=== PATIENT | male | born 1955 | race Caucasian/White ===

== ENCOUNTER 2018-11-03 16:18 | Inpatient (IN) | payer OTHER ==
[~2018-11-03] VITALS: Ht 188 cm; Wt 130.1 kg
[2018-11-03] MEDS ORDERED: ELIQ5TAB PO (16:59)
[2018-11-03] MEDS ORDERED: DIGO0.12 PO (16:59)
[2018-11-03] MEDS ORDERED: TORS20TA2 PO (16:59)
[2018-11-03] MEDS ORDERED: SPIR-10 PO (16:59)
[2018-11-03] MEDS ORDERED: SPIR1CAP INH (16:59)
[2018-11-03] MEDS ORDERED: metoprolol er (16:59)
[2018-11-03] MEDS ORDERED: METOPROLOL TART 25 MG TABLET PO ONE (17:15)
--- NOTE | 2018-11-03 17:56 | REP ---
Clinical: Acute chest pain . Comparison: None . Findings: The mediastinum and cardiac silhouette are stable and within normal limits for portable technique. The lung styles are clear without acute consolidation, effusion, or pneumothorax. Skeletal structures are intact. Impression: No acute cardiopulmonary process appreciated. Electronically Signed by Marcell Cortés MD 11/03/2018 05:48 P
[2018-11-03 18:50] LABS: BASO # 0.1 10^3/uL (0.0-0.2); BASO % 0.3 % (0.0-1.0); HEMATOCRIT 51.4 % (42.0-52.0); HEMOGLOBIN 18.1 g/dl (13.5-17.5); LYMPH % 11.5 % (24.0-44.0); MEAN CORPUSCULAR HEMOGLOBIN 34.3 pg (27.0-33.0); MEAN CORPUSCULAR HGB CONC 35.2 g/dl (32.0-36.5); MEAN CORPUSCULAR VOLUME 97.5 fl (80.0-96.0); MONO # 1.3 10^3/uL (0.0-0.8); MONO % 7.7 % (0.0-5.0); NEUTROPHILS # 13.8 10^3/uL (1.8-7.7); PLATELET COUNT, AUTOMATED 184 10^3/uL (150-450); RED BLOOD COUNT 5.27 10^6/uL (4.30-6.10); WHITE BLOOD COUNT 17.3 10^3/uL (4.0-10.0)
[2018-11-03 19:34] LABS: BLOOD UREA NITROGEN 26 MG/DL (7-18); CALCIUM LEVEL 8.9 MG/DL (8.8-10.2); CARBON DIOXIDE LEVEL 30 MEQ/L (21-32); CHLORIDE LEVEL 97 MEQ/L (98-107); CK-MB VALUE MASS 2.4 NG/ML (<3.6); CPK CREATINE PHOSPHOKINASE 258 U/L (39-308); CREATININE FOR GFR 1.17 MG/DL (0.70-1.30); DIGOXIN LEVEL 0.8 NG/ML (0.5-2.0); GLOMERULAR FILTRATION RATE > 60.0 (>49); GLUCOSE, FASTING 121 MG/DL (70-100); MB/CK RELATIVE INDEX 0.93 (< OR =4); NT-PRO BNP 3908 PG/ML (<125); POTASSIUM SERUM 4.5 MEQ/L (3.5-5.1); SODIUM LEVEL 135 MEQ/L (136-145); TROPONIN I < 0.02 NG/ML (< 0.10)
[2018-11-03] MEDS: METOPROLOL 5 MG/5 ML VIAL IV SCH ×3 (19:35→19:55)
[2018-11-03] MEDS ORDERED: ISOVUE-370 76% 100ML VIAL (Q9967) As Ordered ONE (20:26)
[2018-11-03] MEDS ORDERED: IPRATROPIUM 0.5MG/ALBUTEROL 2.5MG INH SOL UD 3ML (DUONEB)(J7620) NEB ONE (20:30)
--- NOTE | 2018-11-03 22:12 | REPVR ---
EXAM: CT Angiography Chest With Contrast EXAM DATE/TIME: 11/03/2018 8:39 PM CLINICAL HISTORY: 63 years old, male; Cough and fever and shortness of breath; Additional info: Cough, SOB, fever TECHNIQUE: Imaging protocol: Axial computed tomographic angiography images of the chest with intravenous contrast using CT angiography protocol. Coronal and sagittal reformatted images were created and reviewed. 3D rendering: MIP reconstructed images were created and reviewed. Radiation optimization: All CT scans at this facility use at least one of these dose optimization techniques: automated exposure control; mA and/or kV adjustment per patient size (includes targeted exams where dose is matched to clinical indication); or iterative reconstruction. Contrast material: ISOVUE 370; Contrast volume: 100 ml; Contrast route: IV; COMPARISON: CR PORTABLE CHEST X-RAY 11/03/2018 4:57 PM FINDINGS: Pulmonary arteries: There is opacification of the pulmonary arteries with no evidence of pulmonary embolus. Aorta: There is opacification of the aorta which appears intact. Lungs: Mild streaky atelectasis and infiltrate at the lingula. Pleural space: There is no evidence of pneumothorax. There is no evidence of pleural effusion. Heart: There is moderate cardiomegaly. No evidence of pericardial effusion. Gallbladder and bile ducts: There is a 2 CM round calcified gallstone stone within the neck of the gallbladder. Lymph nodes: Small mediastinal lymph nodes Bones/joints: There is moderate scoliosis of the thoracic spine with prominent osteophyte formation. Impression: IMPRESSION: No evidence of pulmonary embolus. Mild streaky atelectasis infiltrate at the lingula. Moderate cardiomegaly. 2 cm gallstone. Electronically signed by: Tereso Flores On 11/03/2018 22:12:10 PM
[2018-11-03] MEDS ORDERED: ACETAMINOPHEN 325 MG TAB As Ordered ONE (22:55)
[2018-11-03] MEDS ORDERED: ACETAMINOPHEN TAB 650MG DOSE (2X325MG) PO ONE (23:00)
[2018-11-03] MEDS ORDERED: METOPROLOL 5 MG/5 ML VIAL As Ordered ONE (23:45)
[2018-11-03] MEDS ORDERED: PIPERACILLIN/TAZOBACTAM SOD 3.375 GM in D5W MINI-BAG PLUS 50 ML IV ONE (23:45)
[2018-11-04] MEDS ORDERED: SPIR1CAP INH (00:27)
[2018-11-04] MEDS ORDERED: ELIQ5TAB PO (00:27)
[2018-11-04] MEDS ORDERED: METO1TAB33 PO (00:27)
[2018-11-04] MEDS ORDERED: TORS20TA2 PO (00:27)
[2018-11-04] MEDS ORDERED: DIGO0.12 PO (00:27)
[2018-11-04] MEDS ORDERED: SPIR-10 PO (00:27)
[2018-11-04] MEDS ORDERED: ALBU83IN INH (00:28)
[2018-11-04] MEDS ORDERED: PROAAER10 INH (00:28)
[2018-11-04] MEDS: APIXABAN 5 MG TAB (ELIQUIS) PO SCH ×3 (00:34→21:09)
--- NOTE | 2018-11-04 00:42 | HPEPDOC ---
General Date of Admission Nov 04, 2018 at 00:08 Date of Service: Nov 04, 2018 Attending Physician: SB KELLY DO Chief Complaint The patient is a 63-year-old male admitted with a reason for visit of Atrial Fibrillation W/Rvr,Pneumonia,Sepsis. Source: Patient Exam Limitations: Clinical conditions Timing/Duration: Day(s) Severity: Severe Associated Symptoms: Cough, Diaphoresis, Fever, Chills, Malaise, Shortness of breath, Weakness, Dizziness History of Present Illness Patient is a 63-year-old male, presenting to the emergency room on account of couple of days onset of weakness, dizziness, cough, shortness of breath. Patient has a past medical history significant for atrial fibrillation on anticoagulation therapy with Eliquis, chronic COPD on Spiriva, morbid obesity, untreated sleep apnea. He states he's had a cough for 2 days with shortness of breath and weakness. He was not aware he had a fever until he got to the emergency room. CT chest with contrast completed due to shortness of breath showed mild streaky atelectasis with infiltrate at the lingula. White blood count was markedly elevated at 17.3, hemoglobin was 18.1, lactic acid was 2.2, proBNP was 07/11/2007. Digoxin level was 0.8. Urinalysis was abnormal for 3+ blood with RBC of 11. Patient was given nebulizer treatment, after which he went into rapid ventricular rhythm. Heart rate was in the 140s. At time of evaluation, shortness of breath was still persisting, patient was also diaphoretic and in some great discomfort. He denied any pain. However. Home Medications Scheduled Apixaban (Eliquis) 5 Mg Tablet, 5 MG PO BID, (Reported) Digoxin (Digoxin) 125 Mcg Tablet, 125 MCG PO DAILY, (Reported) Metoprolol Succinate (Metoprolol Succinate) 100 Mg Tab.er.24h, 150 MG PO BID, (Reported) Spironolactone (Spironolactone) 25 Mg Tablet, 12.5 MG PO DAILY, (Reported) Tiotropium [place] (Spiriva) 18 Mcg Cap.w.dev, 1 INHALATION INH DAILY, (Reported) Torsemide (Torsemide) 20 Mg Tablet, 40 MG PO DAILY, (Reported) Scheduled PRN Albuterol Sulf (Albuterol Sulfate) 2.5 Mg/3 Ml Vial.neb, 2.5 MG INH Q4H PRN for SHORTNESS OF BREATH, (Reported) Albuterol Sulfate (Proair Hfa) 8.5 Gm Hfa.aer.ad, 2 PUFF INH Q4H PRN for SHORTNESS OF BREATH, (Reported) Allergies Coded Allergies: lisinopril (Verified Allergy, Unknown, 11/03/18) Past Medical History Medical History Morbid obesity. Obstructive sleep apnea. Atrial fibrillation. COPD Surgical History Inguinal hernia repair Family History Father: Lung cancer Mother: Alzheimer's Social History * Smoker: Denies Alcohol: occationally Drugs: denies A-FIB/CHADSVASC A-FIB History Current/History of A-Fib/PAF?: Yes Current PO Anticoag Therapy: Yes Review of Systems Other systems A 10 point pertinent review of systems was completed, negative except as stated in the history of presenting illness. Physical Examination Other physical findings GENERAL: Obese male in some distress and discomfort with diaphoresis and some SOB SKIN : Warm, eccymosis and discoloration HEENT: Atraumatic, normocephalic, PERRL, moist mucous membrane CARDIOVASCULAR: irregular rate and rhythm, S1S2, no JVD, BLE edema, distal pulses not palpable RESP: inspiratory crackles to right posterior lung fileds, mild accessory muscle use noted ABDOMEN: BS+ non distended non tender MS: no joint deformities NEURO: Alert and oriented x 3, CN2-12 grossly intact PSYCH: no anxiety or agitation, appropriate mood and affect. Vital Signs Vital Signs Date Time Temp Pulse Resp B/P (MAP) Pulse Ox O2 Delivery O2 Flow Rate FiO2 11/04/18 00:15 99.6 11/04/18 00:15 101 28 106/75 (85) 94 Nasal Cannula 2.0 Laboratory Data Labs 24H Laboratory Tests 2 11/03/18 18:38: Immature Granulocyte % (Auto) 0.5, White Blood Count 17.3H, Red Blood Count 5.27, Hemoglobin 18.1H, Hematocrit 51.4, Mean Corpuscular Volume 97.5H, Mean Corpuscular Hemoglobin 34.3H, Mean Corpuscular Hemoglobin Concent 35.2, Red Cell Distribution Width 12.8, Platelet Count 184, Neutrophils (%) (Auto) 80.0H, Lymphocytes (%) (Auto) 11.5L, Monocytes (%) (Auto) 7.7H, Eosinophils (%) (Auto) 0.0, Basophils (%) (Auto) 0.3, Neutrophils # (Auto) 13.8H, Lymphocytes # (Auto) 2.0, Monocytes # (Auto) 1.3H, Eosinophils # (Auto) 0.0, Basophils # (Auto) 0.1, Nucleated Red Blood Cells % (auto) 0.0, Urine Color YELLOW, Urine Appearance CLEAR, Urine pH 6.0, Urine Specific [place] 1.046, Urine Protein NEGATIVE, Urine Glucose (UA) NEGATIVE, Urine Ketones NEGATIVE, Urine Blood 3+H, Urine Nitrite NEGATIVE, Urine Bilirubin NEGATIVE, Urine Urobilinogen 0.2, Urine Leukocyte Esterase NEGATIVE, Urine WBC (Auto) 0, Urine RBC (Auto) 11H, Urine Hyaline Casts (Auto) 0, Urine Bacteria (Auto) NEGATIVE, Urine Squamous Epithelial Cells 1, Urine Sperm (Auto) , Anion Gap 8, Glomerular Filtration Rate > 60.0, Blood Urea Nitrogen 26H, Creatinine 1.17, Sodium Level 135L, Potassium Level 4.5, Chloride Level 97L, Carbon Dioxide Level 30, Calcium Level 8.9, Total Creatine Kinase 258 , Creatine Kinase MB 2.4, Creatine Kinase MB Relative Index 0.93, Troponin I < 0.02, XS-Ttj-M-Type Natriuretic Peptide 3908H, Digoxin Level 0.8 11/03/18 22:04: Lactic Acid Level 2.2*H CBC/BMP Laboratory Tests 11/03/18 18:38 Red Blood Count 5.27, Mean Corpuscular Volume 97.5 H, Mean Corpuscular Hemoglobin 34.3 H, Mean Corpuscular Hemoglobin Concent 35.2, Red Cell Distribution Width 12.8, Neutrophils (%) (Auto) 80.0 H, Lymphocytes (%) (Auto) 11.5 L, Monocytes (%) (Auto) 7.7 H, Eosinophils (%) (Auto) 0.0, Basophils (%) (Auto) 0.3, Neutrophils # (Auto) 13.8 H, Lymphocytes # (Auto) 2.0, Monocytes # (Auto) 1.3 H, Eosinophils # (Auto) 0.0, Basophils # (Auto) 0.1, Calcium Level 8.9, Total Creatine Kinase 258 Microbiology Microbiology 11/03/18 Blood Culture, Received Pending 11/03/18 Blood Culture, Received Pending Assessment/Plan Sepsis with Pneumonia -Presenting with fever, shortness of breath, cough, elevated lactic acid -Continous IVF till HR is normalized -Antibiotic therapy with IV Levaquin -Scheduled bronchodilator therapy -Respiratory support and monitoring to keep saturation greater than 94% --Follow blood culture and adjust management as indicated Atrial fibrillation with RVR -Metoprolol tartrate for rate control -Continue anticoagulation with Eliquis -Close telemetry monitoring -2-D echocardiogram to evaluate ejection fraction and rule out regional wall motion abnormalities Acute COPD exacerbation -Continue nebulizer treatment -Treatment of underlying acute infectious process -Initiate steroid therapy after at least 48 hours of antibiotic therapy Morbid obesity -Complicating care Obstructive sleep apnea -currently untreated and likely worsening current acute COPD -Patient will need assessment for CPAP use after discharge DVT prophylaxis -Patient is fully anticoagulated Plan / VTE VTE Prophylaxis Ordered?: Yes BANG RAMOSP Nov 04, 2018 00:42
[2018-11-04] MEDS ORDERED: NS 1,000 ML IV SCH ×2 (00:45→14:00)
[2018-11-04] MEDS: LevoFLOXacin IV 500 MG in APPROPRIATE DILUENT 1 EA IV SCH (01:37)
[2018-11-04 03:33] LABS: HEMATOCRIT 48.6 % (42.0-52.0); HEMOGLOBIN 16.7 g/dl (13.5-17.5); MEAN CORPUSCULAR HEMOGLOBIN 33.7 pg (27.0-33.0); MEAN CORPUSCULAR HGB CONC 34.4 g/dl (32.0-36.5); MEAN CORPUSCULAR VOLUME 98.2 fl (80.0-96.0); PLATELET COUNT, AUTOMATED 145 10^3/uL (150-450); RED BLOOD COUNT 4.95 10^6/uL (4.30-6.10); WHITE BLOOD COUNT 18.1 10^3/uL (4.0-10.0)
[2018-11-04 04:00] LABS: ALT/SGPT 155 U/L (12-78); BILIRUBIN,TOTAL 1.2 MG/DL (0.2-1.0); BLOOD UREA NITROGEN 27 MG/DL (7-18); CALCIUM LEVEL 8.4 MG/DL (8.8-10.2); CARBON DIOXIDE LEVEL 32 MEQ/L (21-32); CHLORIDE LEVEL 94 MEQ/L (98-107); CREATININE FOR GFR 1.16 MG/DL (0.70-1.30); GLOMERULAR FILTRATION RATE > 60.0 (>49); GLUCOSE, FASTING 121 MG/DL (70-100); POTASSIUM SERUM 3.8 MEQ/L (3.5-5.1); SODIUM LEVEL 134 MEQ/L (136-145)
[2018-11-04] MEDS ORDERED: DIGOXIN 0.125 MG TAB PO ONE (05:30)
[2018-11-04] MEDS ORDERED: METOPROLOL 5 MG/5 ML VIAL IV ONE (05:30)
[2018-11-04] MEDS ORDERED: METOPROLOL TART 25 MG TABLET PO SCH ×2 (06:00→18:00)
[2018-11-04] MEDS: IPRATROPIUM 0.5MG/ALBUTEROL 2.5MG INH SOL UD 3ML (DUONEB)(J7620) NEB PRN (06:03)
[2018-11-04 08:00] VITALS: BP 129/74; O2SAT 94
[2018-11-04] MEDS: IPRATROPIUM 0.5MG/ALBUTEROL 2.5MG INH SOL UD 3ML (DUONEB)(J7620) NEB SCH ×2 (08:20→11:16)
[2018-11-04] MEDS ORDERED: SPIRONOLACTONE 12.5MG PER 1/2 TABLET PO SCH (09:00)
[2018-11-04] MEDS ORDERED: METOPROLOL SUCC (TopROL XL) 50MG **XL** TAB PO SCH (09:00)
[2018-11-04] MEDS ORDERED: TORSEMIDE 20 MG TAB PO SCH (09:00)
--- NOTE | 2018-11-04 10:33 | ECGEPIP ---
[place] - ED Test Date: 2018-11-03 Pat Name: LEYDA LEYVA Department: Room: - Gender: Male Complaint Operator: MARYCARMEN : 1955 Requested By: JO Harris Order Number: [id number] Reading MD: Ricardo Vidal Measurements Intervals [place] Rate: 127 P: NV: -1 QRS: 163 QRSD: 177 T: 19 QT: 360 QTc: 525 Interpretive Statements ATRIAL FIBRILLATION WITH RAPID VENTRICULAR RESPONSE INDETERMINATE AXIS RIGHT BUNDLE BRANCH BLOCK LEFT POSTERIOR FASCICULAR BLOCK MARKED ST DEPRESSION, CONSIDER SUBENDOCARDIAL INJURY NO PRIORS FOR COMPARISON Electronically Signed on 11-04-2018 10:33:05 EDT by Ricardo Vidal
[2018-11-04 12:00] VITALS: BP 120/78; O2SAT 95
[2018-11-04] MEDS: ACETAMINOPHEN TAB 650MG DOSE (2X325MG) PO PRN (12:48)
[2018-11-04 13:36] VITALS: BP 90/60
--- NOTE | 2018-11-04 13:55 | ECHO ---
DATE OF STUDY: 11/04/2018 REFERRING PHYSICIAN: ALEXIS Maher INDICATION: Atrial fibrillation. Height 185 cm. Weight 130 kg. DIMENSIONS: IVS 1.3 LV 4.6 LVPW 1.3 LA 4.1 Aorta 4.2 RV 4.8 from parasternal long-axis view IVC 2.4 FINDINGS: The study is of rather limited technical quality with difficult visualization corresponding to the patient's body habitus. The patient is in atrial fibrillation with ventricular rate approximately 110 beats per minute. Left ventricle is normal size. Mild left ventricular hypertrophy is noted. Overall, there is likely preserved LV systolic function, even though the visualization was limited, and I certainly cannot rule out subtle wall motion abnormalities. Right ventricle appears dilated and hypokinetic. There is severe biatrial enlargement. Aortic valve was poorly seen. It is mildly sclerotic. There was limited visualization of mitral and tricuspid valves that appeared grossly normal. The same applies for pulmonic valve. No pericardial effusion is noted. Inferior vena cava is dilated, and there is minimal appreciable collapse with respiration indicative of likely high central venous pressure. Aortic root is mildly dilated at 4.2 cm. Aortic arch and abdominal aorta were not visualized. Doppler interrogation reveals no aortic stenosis or insufficiency. The same applies for mitral valve. There is trace tricuspid insufficiency but quality of TR jet was not sufficient to adequately estimate pulmonary artery pressure. Evaluation of diastolic function is inconclusive due to underlying atrial fibrillation. CONCLUSIONS: 1. The study is of limited technical quality. 2. Normal LV size with mild LVH and probably normal LV systolic function. 3. No significant valvular disease. 4. Dilated right ventricle. 5. High central venous pressure. 6. Unable to reliably estimate pulmonary artery pressure. 7. Severe biatrial enlargement. COMMENT: Subacute bacterial endocarditis (SBE) prophylaxis is not recommended. [facility]
[2018-11-04] MEDS ORDERED: FUROSEMIDE 40 MG/4 ML VIAL (J1940) IV ONE (14:45)
[2018-11-04] MEDS: TIOTROPIUM INHALER/CAPSULE (SPIRIVA) INH SCH (15:15)
--- NOTE | 2018-11-04 15:22 | CR ---
DATE OF CONSULTATION: 11/04/2018 REFERRING PHYSICIAN: Dr. Monteiro INDICATION: Atrial fibrillation with rapid ventricular response. HISTORY OF PRESENT ILLNESS: Mr. Umanzor is previously unknown to me. He is a 63-year-old man who resides in [facility] and is visiting here his daughter. He reports several day history of weakness and cough prior to coming to emergency room yesterday. Eventually, he was so weak and so dizzy and lightheaded that he was unable to ambulate and asked his daughter to bring him to emergency room. He was found to be in atrial fibrillation with rapid ventricular response. He was also febrile and had elevated white cell count. Also, his lactic acid level was mildly elevated. He was treated essentially with antibiotics, intravenous (IV) hydration, and continuation of his chronic rate-controlling medications, but because he remained tachycardia, I was asked by Dr. Monteiro to see him in consultation. The patient tells me that he was diagnosed with atrial fibrillation in summer 2017. Apparently, his systolic function was severely reduced, and he was told that his heart works only 20%. He had a heart catheterization that did not reveal any obstructive coronary artery disease. He also underwent cardioversion that apparently was unsuccessful, and he has been maintained on combination of Toprol XL 150 twice a day and digoxin since. At his baseline, he is unable to ambulate very far because he gets rapidly short of breath. He believes that is a combination of chronic obstructive pulmonary disease (COPD) and obesity. He was told that he probably has obstructive sleep apnea, but he has been resistant to have this evaluated further. Nevertheless, he never had similar symptoms like today, especially the weakness and some form of disorientation. He did not know that he had any fever, but he had had some sweats and chills for a few days prior to coming to emergency room. PAST MEDICAL HISTORY: 1. Probably chronic atrial fibrillation since 2018. 2. Morbid obesity. 3. COPD. 4. Suspected sleep apnea. HOME MEDICATIONS: - Eliquis 5 twice a day - digoxin 0.125 a day - metoprolol succinate 150 twice a day - spironolactone 12.5 a day - Spiriva one inhalation a day - torsemide 40 mg daily He reports allergies to LISINOPRIL. SURGICAL HISTORY: Inguinal hernia repair. FAMILY HISTORY: His father from lung cancer and mother from Alzheimer disease. SOCIAL HISTORY: The patient is . He lives with his sister who is a registered nurse (RN). He used to smoke at least 30 years at one pack a day and quit 2 months ago. No significant alcohol use. 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 REVIEW OF SYSTEMS: He denies any fever. He did have some chills and sweats. He denies significant changes in his weight lately but did not follow his weight with any degree of regularity. He denies any chest pain, palpitations. He had dizziness but no anel syncope. He does have [place] Heart [employer] class III dyspnea at his baseline. No abdominal pain. No nausea, vomiting, or diarrhea. He did not notice significant peripheral edema. He does report pain in his right ankle in the last several days. PHYSICAL EXAMINATION: Mr. Umanzor is a middle-aged, morbidly obese man. He is an obese man who does not appear to be in any distress. Last set of vital signs revealed blood pressure 120/78, heart rate about 105, and he fluctuates from high 90s to 120s. Saturation is 95% on 3 liters of oxygen by nasal cannula. He is alert and oriented and appropriate. His jugular venous pressure (JVP) is very elevated. I would estimate at least 7 or 8 cm above clavicle. Lungs are reasonably clear with fair air movement. I do not appreciate any wheezing, crackles, or rhonchi. Heart examination: Reveals very muffled heart sound corresponding to his obesity. I cannot appreciate precordial impulse. There is irregular tachycardia without obvious murmur or gallop. Abdomen is protuberant but soft and nontender. I do not appreciate evidence for ascites. There is trace peripheral edema bilaterally. There are prominent excoriation on his right rhodes with surrounding erythema. Neurologically, he is intact. I did not formally test his deep tendon reflexes or muscle strengths, but his speech is normal, and he moves freely all four extremities. He tells me that he still has trouble with ambulation. LABORATORY-[facility]: Complete blood count (CBC) reveals WBC count 18,000, hemoglobin 16.7, hematocrit 48.6, and platelet count 145,000. Basic metabolic panel as of this morning: Sodium 134, potassium 3.8, BUN 27, creatinine 1.2, glucose 121. His lactic acid level continues to be elevated. It was yesterday 2.2 and remains approximately same since. Bilirubin is 1.2, AST 94, ALT 155, alkaline phosphatase 63, albumin 3.0. His N-terminal proBNP was 3900. Cardiac enzymes negative times one. Digoxin level was 0.8. Urinalysis revealed 3+ blood but negative for ketones, protein, and glucose. 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 Chest x-ray reveals cardiomegaly and congestive heart failure without distinct effusions. CT angiography of the chest revealed enlargement of all four cardiac chambers with possible infiltrate in the lingula. There are dilated pulmonary arteries. An echocardiogram performed earlier today and interpreted by me reveals grossly preserved left ventricular systolic function with dilated hypokinetic right ventricle severe biatrial enlargement and no hemodynamically significant valvular disease. There is a high central venous pressure, but I was unable to reliably estimate pulmonary artery pressure even though it is very likely at least mildly elevated. There is not a septal wall motion abnormality indicative of severe pulmonary hypertension. ASSESSMENT AND PLAN: Mr. Umanzor is a 63-hour-old man who very likely has chronic atrial fibrillation, probably precipitated by obesity and obstructive sleep apnea (BECKIE) that has not been treated. He presents with dizziness and weakness and is found to be febrile and has very elevated white cell count. I am not convinced that he has pneumonia, at least not clinically, even though it certainly is in differential diagnosis. The management of infection remains with his primary team. As far as the atrial fibrillation is concerned, he is mildly tachycardic with the average heart rate probably about 105. I am going to leave his medications unchanged. I think that it is reflective of underlying infection and sepsis, and I do expect that it will come down as the infection gets under better control. As far as his dyspnea is concerned, he undoubtedly is volume overloaded. He has not been receiving his diuretics, and he actually initially got some hydration to start with. I think that we need to reverse the course on this, as it very likely contributes to his degree of dyspnea. I am going to give him a single dose of furosemide today and then will reevaluate him again tomorrow. I will follow the patient with you. I do expect that he will stay in the hospital for several days. [place]
[2018-11-04 15:46] VITALS: BP 104/64
[2018-11-04] MEDS ORDERED: SLF 3 ML SYR IV PRN (16:30)
[2018-11-04] MEDS: LEVALBUTEROL 1.25 MG/0.5 ML CONCENTRATE NEB INH SCH (19:46)
[2018-11-04 20:00] VITALS: BP 127/74
[2018-11-04] MEDS: METOPROLOL SUCC (TopROL XL) 50MG **XL** TAB PO SCH (21:10)
[2018-11-04] MEDS: SLF 3 ML SYR IV SCH (21:10)
[2018-11-04 23:59] VITALS: BP 110/61
[2018-11-05] VITALS (21 sets, daily range): BP systolic 103–127; BP diastolic 53–75; O2SAT 91–97
[2018-11-05] MEDS: IPRATROPIUM 0.5MG/ALBUTEROL 2.5MG INH SOL UD 3ML (DUONEB)(J7620) NEB PRN (01:35)
[2018-11-05] MEDS: LevoFLOXacin IV 500 MG in APPROPRIATE DILUENT 1 EA IV SCH (02:12)
[2018-11-05 05:03] LABS: BASO # 0.1 10^3/uL (0.0-0.2); BASO % 0.3 % (0.0-1.0); HEMATOCRIT 43.7 % (42.0-52.0); HEMOGLOBIN 15.3 g/dl (13.5-17.5); LYMPH # 2.5 10^3/uL (1.5-4.5); LYMPH % 13.4 % (24.0-44.0); MEAN CORPUSCULAR HEMOGLOBIN 33.9 pg (27.0-33.0); MEAN CORPUSCULAR VOLUME 96.9 fl (80.0-96.0); MONO # 1.7 10^3/uL (0.0-0.8); MONO % 9.5 % (0.0-5.0); NEUTROPHILS % 76.1 % (36.0-66.0); PLATELET COUNT, AUTOMATED 130 10^3/uL (150-450); RED BLOOD COUNT 4.51 10^6/uL (4.30-6.10); WHITE BLOOD COUNT 18.3 10^3/uL (4.0-10.0)
[2018-11-05] MEDS: SLF 3 ML SYR IV SCH ×3 (05:06→20:17)
[2018-11-05 05:34] LABS: ALBUMIN 2.7 GM/DL (3.2-5.2); ALT/SGPT 97 U/L (12-78); BILIRUBIN,TOTAL 0.7 MG/DL (0.2-1.0); BLOOD UREA NITROGEN 28 MG/DL (7-18); CALCIUM LEVEL 7.8 MG/DL (8.8-10.2); CARBON DIOXIDE LEVEL 29 MEQ/L (21-32); CHLORIDE LEVEL 96 MEQ/L (98-107); CREATININE FOR GFR 0.96 MG/DL (0.70-1.30); GLOMERULAR FILTRATION RATE > 60.0 (>49); GLUCOSE, FASTING 118 MG/DL (70-100); POTASSIUM SERUM 3.5 MEQ/L (3.5-5.1); SODIUM LEVEL 133 MEQ/L (136-145); TOTAL PROTEIN 7.1 GM/DL (6.4-8.2)
[2018-11-05] MEDS: LEVALBUTEROL 1.25 MG/0.5 ML CONCENTRATE NEB INH SCH ×3 (08:23→20:42)
[2018-11-05] MEDS: TIOTROPIUM INHALER/CAPSULE (SPIRIVA) INH SCH (08:23)
[2018-11-05] MEDS: APIXABAN 5 MG TAB (ELIQUIS) PO SCH ×2 (08:27→20:16)
[2018-11-05] MEDS: DIGOXIN 0.125 MG TAB PO SCH (08:28)
[2018-11-05] MEDS: METOPROLOL SUCC (TopROL XL) 50MG **XL** TAB PO SCH ×2 (08:29→20:16)
[2018-11-05] MEDS ORDERED: FUROSEMIDE 40 MG/4 ML VIAL (J1940) IV ONE (10:00)
[2018-11-05] MEDS ORDERED: POTASSIUM CHLORIDE 10 MEQ SR TABLET PO ONE (10:00)
--- NOTE | 2018-11-05 10:18 | IPN ---
DATE: 11/05/2018 Mr. Umanzor tells me that he is feeling better. He is less dizzy and feels like having more energy. He did not notice much change in his dyspnea. His vital signs overnight remained fairly stable. Systolic blood pressure varied between low 100s to 120s. He has been afebrile an average heart rate has dropped to about the high 80s and low 90s. Saturation is 95% on 2 liters of oxygen. His fluid balance yesterday was poorly documented. He his weight though is down approximately 1.5 kg since yesterday. He is alert and oriented appropriate. His jugular venous pressure is still high but not as high as it was yesterday, estimate about 4 to 5 cm above clavicle. Lungs are clear, better air movement today than yesterday. Heart exam continues to be unchanged. He has fairly muffled heart sounds corresponding to his body habitus, but I do not appreciate distinct murmur. Abdomen is soft, nondistended but protuberant, cannot estimate the size of liver or spleen. He has mild peripheral edema bilaterally. LABORATORY: Basic metabolic panel reveals sodium 133, potassium 3.5, BUN 28, creatinine 1 and glucose 118, lactic acid is down to 1.4. Liver function tests are improved. Troponin remains negative and albumin is 2.7 ASSESSMENT/PLAN: Mr. Umanzor is a 63-year-old man who has probably chronic atrial fibrillation with and presented with dizziness and weakness. He was febrile and continues to have white cell count elevation. The working diagnosis is pneumonia, though I am not convinced completely. From cardiac perspective, his atrial fibrillation was poorly controlled but just with medical management of the underlying infection it has improved. He does continue to have volume overloaded state, and I am going to restart his spironolactone, and I am going to give him another dose of IV furosemide today, together with supplemental potassium. I am seeing definite improvement in his condition and I am hoping by tomorrow he will feed better yet. As far as discharging the patient home, I am not clear when this is going to happen, he is still oxygen dependent and still is not back to his baseline but hopefully within a couple days he will be ready to go home. The planetarium technician told me that he had a single six beat run of ventricular tachycardia overnight. I went through his telemetry tracings. There were numerous that were labeled as ventricular tachycardia by computer, but reviewing the strips I did not find any.
[2018-11-05] MEDS: SPIRONOLACTONE 25 MG TAB PO SCH (10:33)
[2018-11-05] MEDS: ACETAMINOPHEN TAB 650MG DOSE (2X325MG) PO PRN ×2 (12:38→21:05)
[2018-11-05] MEDS: SYMBICORT 80/4.5MCG INHALER 6GM INH SCH (20:00)
--- NOTE | 2018-11-05 23:11 | IPNPDOC ---
Subjective Date Seen The patient was seen on 11/05/18. Subjective Chief Complaint/HPI Feels a little better today but still not back to baseline, still remains weak and dizzy. He is still requiring oxygen Objective Physical Examination General Exam: Positive: Alert, Cooperative, No Acute Distress Eye Exam: Positive: PERRLA, Conjunctiva & lids normal, EOMI; Negative: Sclera icteric ENT Exam: Positive: Mucous membr. moist/pink, Pharynx Normal Neck Exam: Positive: Supple, JVD Chest Exam: Positive: Rhonchi, Wheezing, Diminished Heart Exam: Positive: Tachycardic, Irregular Rhythm, Normal S1, Normal S2; Negative: Gallops, Murmurs, Rubs Telemetry: Positive: Atrial fibrillation, Tachycardia Abdomen Exam: Positive: Normal bowel sounds, Soft, Other (obese and protuberant) Extremity Exam: Positive: Edema (right > left), Other (Bilateral chroic venous stasis changes) Skin Exam: Positive: Lesion (scratch squires on su right most prominent.) Neuro Exam: Positive: Normal Speech, Strength at 5/5 X4 ext, Normal Tone Assessment /Plan Assessment 63-year-old man with PMH of Atrial fibrillation, Morbid obesity, COPD, reportedly reduced systolic function in 2018 with EF of 20%, cardiac cath egative, possible sleep apnea but has resisted getting tested who resides in [facility] and is visiting here his daughter. He presented to the ED with several days history of weakness and cough prior to coming to emergency room yesterday. Eventually, he was so weak and so dizzy and lightheaded that he was unable to ambulate and asked his daughter to bring him to emergency room. He was found to be in atrial fibrillation with rapid ventricular response. He was also febrile and had elevated white cell count, hypoxic. Also, his lactic acid level was mildly elevated. CT angio chest was negative for pulmonary embolism but showed streak infiltrates in the lingula. Patient was admitted for pneumonia and afib with rvr. CAP will continue levofloxacin Blood cultures negative till date. No sputum available Acute respiratory failure with hypoxia due to CHF, pneumonia and underlying COPD and OS continue oxygen supplementation as needed. will get ABG Diastolic CHF exacerbation and right heart failure with pulmonary hypertension will continue with lasix and spironolactone Echo reviewed Atrial fibrillation with RVR continue metoprolol, digoxin , eliquis Dr Perez following. Obesity and possible underlying sleep apnea will continue oxygen supplementation in hospital will need sleep study after discharge. Transaminitis probably due to fatty liver and hepatic congestion COPD will continue spiriva, levalbuterol will start Symbicort will get ABG Chronic bilateral lower extremity venous stasis changes Plan/VTE VTE Prophylaxis Ordered?: Yes VS, I&O, 24H, Fishbone Vital Signs/I&O Vital Signs Date Time Temp Pulse Resp B/P (MAP) Pulse Ox O2 Delivery O2 Flow Rate FiO2 11/05/18 21:00 95 Nasal Cannula 3.0 11/05/18 20:16 75 120/75 11/05/18 19:24 96.1 19 I&O- Last 24 Hours up to 6 AM 11/05/18 06:00 Intake Total 1810 ml Output Total 200 ml Balance 1610 ml Laboratory Data 24H LABS Laboratory Tests 2 11/05/18 04:52: Immature Granulocyte % (Auto) 0.7, White Blood Count 18.3H, Red Blood Count 4.51, Hemoglobin 15.3, Hematocrit 43.7, Mean Corpuscular Volume 96.9H, Mean Corpuscular Hemoglobin 33.9H, Mean Corpuscular Hemoglobin Concent 35.0, Red Cell Distribution Width 12.8, Platelet Count 130L, Neutrophils (%) (Auto) 76.1H, Lymphocytes (%) (Auto) 13.4L, Monocytes (%) (Auto) 9.5H, Eosinophils (%) (Auto) 0.0, Basophils (%) (Auto) 0.3, Neutrophils # (Auto) 14.0H, Lymphocytes # (Auto) 2.5, Monocytes # (Auto) 1.7H, Eosinophils # (Auto) 0.0, Basophils # (Auto) 0.1, Nucleated Red Blood Cells % (auto) 0.0, Anion Gap 8, Glomerular Filtration Rate > 60.0, Lactic Acid Level 1.4, Blood Urea Nitrogen 28H, Creatinine 0.96, Sodium Level 133L, Potassium Level 3.5, Chloride Level 96L, Carbon Dioxide Level 29, Calcium Level 7.8L, Aspartate Amino Transf (AST/SGOT) 57H, Alanine Aminotransferase (ALT/SGPT) 97H, Alkaline Phosphatase 52, Total Bilirubin 0.7, Total Protein 7.1, Albumin 2.7L, Troponin I < 0.02, Albumin/Globulin Ratio 0.61L CBC/BMP Laboratory Tests 7/5/19 04:52 Red Blood Count 4.51, Mean Corpuscular Volume 96.9 H, Mean Corpuscular Hemoglobin 33.9 H, Mean Corpuscular Hemoglobin Concent 35.0, Red Cell Distribution Width 12.8, Neutrophils (%) (Auto) 76.1 H, Lymphocytes (%) (Auto) 13.4 L, Monocytes (%) (Auto) 9.5 H, Eosinophils (%) (Auto) 0.0, Basophils (%) (Auto) 0.3, Neutrophils # (Auto) 14.0 H, Lymphocytes # (Auto) 2.5, Monocytes # (Auto) 1.7 H, Eosinophils # (Auto) 0.0, Basophils # (Auto) 0.1, Calcium Level 7.8 L, Aspartate Amino Transf (AST/SGOT) 57 H, Alanine Aminotransferase (ALT/SGPT) 97 H, Alkaline Phosphatase 52, Total Bilirubin 0.7, Total Protein 7.1, Albumin 2.7 L Microbiology Microbiology 11/03/18 Blood Culture - Preliminary, Resulted No growth after 24 hours . All specim... 11/03/18 Blood Culture - Preliminary, Resulted No growth after 24 hours . All specim... ARSEN CRABTREE MD Nov 05, 2018 23:10
[2018-11-06] VITALS (27 sets, daily range): BP systolic 106–140; BP diastolic 64–78; O2SAT 87–95
[2018-11-06] MEDS: IPRATROPIUM 0.5MG/ALBUTEROL 2.5MG INH SOL UD 3ML (DUONEB)(J7620) NEB PRN (02:08)
[2018-11-06 05:51] LABS: BASO % 0.3 % (0.0-1.0); EOS # 0.1 10^3/uL (0.0-0.50); HEMATOCRIT 41.9 % (42.0-52.0); HEMOGLOBIN 14.7 g/dl (13.5-17.5); LYMPH # 2.3 10^3/uL (1.5-4.5); LYMPH % 18.6 % (24.0-44.0); MEAN CORPUSCULAR HEMOGLOBIN 33.2 pg (27.0-33.0); MEAN CORPUSCULAR HGB CONC 35.1 g/dl (32.0-36.5); MEAN CORPUSCULAR VOLUME 94.6 fl (80.0-96.0); MONO # 1.5 10^3/uL (0.0-0.8); MONO % 11.8 % (0.0-5.0); NEUTROPHILS # 8.5 10^3/uL (1.8-7.7); NEUTROPHILS % 67.8 % (36.0-66.0); PLATELET COUNT, AUTOMATED 135 10^3/uL (150-450); RED BLOOD COUNT 4.43 10^6/uL (4.30-6.10); WHITE BLOOD COUNT 12.6 10^3/uL (4.0-10.0)
[2018-11-06] MEDS: ACETAMINOPHEN TAB 650MG DOSE (2X325MG) PO PRN ×2 (05:57→21:01)
[2018-11-06] MEDS: SLF 3 ML SYR IV SCH ×3 (05:57→20:54)
[2018-11-06] MEDS: LevoFLOXacin 500 MG TABLET PO SCH (05:57)
[2018-11-06 06:13] LABS: BLOOD UREA NITROGEN 20 MG/DL (7-18); CALCIUM LEVEL 8.1 MG/DL (8.8-10.2); CARBON DIOXIDE LEVEL 30 MEQ/L (21-32); CHLORIDE LEVEL 99 MEQ/L (98-107); GLOMERULAR FILTRATION RATE > 60.0 (>49); GLUCOSE, FASTING 121 MG/DL (70-100); POTASSIUM SERUM 3.4 MEQ/L (3.5-5.1); SODIUM LEVEL 135 MEQ/L (136-145)
[2018-11-06 06:16] LABS: ABG BASE EXCESS 3.8 (-2.0-2.0); ABG HCO3 27.9 MEQ/L (22.0-26.0); ABG O2 SATURATION 95.5 % (95.0-99.0); ABG PARTIAL PRESSURE CO2 40.3 mmHg (35.0-45.0); ABG PARTIAL PRESSURE O2 72.3 mmHg (75.0-100.0); ABG STANDARD HCO3 27.8 MEQ/L (22.0-26.0); ABG TOTAL CO2 29.1 MEQ/L (23.0-31.0); ABG pH (ARTERIAL) 7.458 UNITS (7.350-7.450)
[2018-11-06] MEDS: TIOTROPIUM INHALER/CAPSULE (SPIRIVA) INH SCH (07:34)
[2018-11-06] MEDS: SYMBICORT 80/4.5MCG INHALER 6GM INH SCH ×2 (07:35→20:23)
[2018-11-06] MEDS: LEVALBUTEROL 1.25 MG/0.5 ML CONCENTRATE NEB INH SCH ×3 (07:35→20:00)
[2018-11-06] MEDS: SPIRONOLACTONE 25 MG TAB PO SCH (08:41)
[2018-11-06] MEDS: APIXABAN 5 MG TAB (ELIQUIS) PO SCH ×2 (08:41→20:54)
[2018-11-06] MEDS: DIGOXIN 0.125 MG TAB PO SCH (08:41)
[2018-11-06] MEDS: FUROSEMIDE 40 MG/4 ML VIAL (J1940) IV SCH (08:43)
[2018-11-06] MEDS: METOPROLOL SUCC (TopROL XL) 50MG **XL** TAB PO SCH ×2 (08:43→20:54)
[2018-11-06] MEDS ORDERED: POTASSIUM CHLORIDE 10 MEQ SR TABLET PO ONE (09:00)
--- NOTE | 2018-11-06 09:04 | IPNPDOC ---
Subjective Date Seen The patient was seen on 11/06/18. Subjective Chief Complaint/HPI Feeling much better today. SOB is much improved, Not needing any oxygen at rest. Will check ambulatory oxygen saturation. He says he has not been having SOB on minimal exertion for about a year so has not been walking much . But now he feels much improved so thinks he will he able to walk much more. His right leg is more swollen and red than the other. Objective Physical Examination General Exam: Positive: Alert, Cooperative, No Acute Distress Eye Exam: Positive: PERRLA, Conjunctiva & lids normal, EOMI; Negative: Sclera icteric ENT Exam: Positive: Mucous membr. moist/pink, Pharynx Normal Neck Exam: Positive: Supple, JVD Chest Exam: Positive: Clear to auscultation, Normal air movement Heart Exam: Positive: Tachycardic, Irregular Rhythm, Normal S1, Normal S2; Negative: Gallops, Murmurs, Rubs Telemetry: Positive: Atrial fibrillation, Tachycardia Abdomen Exam: Positive: Normal bowel sounds, Soft, Other (obese and protuberant) Extremity Exam: Positive: Edema (right > left), Other (Bilateral chroic venous stasis changes) Skin Exam: Positive: Lesion (scratch squires on su right most prominent.) Neuro Exam: Positive: Normal Speech, Strength at 5/5 X4 ext, Normal Tone Assessment /Plan Assessment 63-year-old man with PMH of Atrial fibrillation, Morbid obesity, COPD, reportedly reduced systolic function in 2018 with EF of 20%, cardiac cath egative, possible sleep apnea but has resisted getting tested who resides in [facility] and is visiting here his daughter. He presented to the ED with several days history of weakness and cough prior to coming to emergency room yesterday. Eventually, he was so weak and so dizzy and lightheaded that he was unable to ambulate and asked his daughter to bring him to emergency room. He was found to be in atrial fibrillation with rapid ventricular response. He was also febrile and had elevated white cell count, hypoxic. Also, his lactic acid level was mildly elevated. CT angio chest was negative for pulmonary embolism but showed streak infiltrates in the lingula. Patient was admitted for pneumonia and afib with rvr. Pneumonia I do not think patient has pneumonia however i do think he has right leg cellulitis as it is more red and swollen than the other and also has abrasions ans scratches on it. the radiology features are more due to fluid and fibrosis. Blood cultures negative till date. No sputum available Right leg cellulitis Right leg is more red and swollen than the other and also has abrasions ans scratches on it. will get doppler will continue with levofloxacin as WBC is improving Acute respiratory failure with hypoxia due to CHF, pneumonia and underlying COPD and BECKIE continue oxygen supplementation as needed. ABG noted so hypercarbia, has mild hypoxia Diastolic CHF exacerbation and right heart failure with pulmonary hypertension will continue with lasix and spironolactone fluid restriction 1.8 liters. Echo shows: . Normal LV size with mild LVH and probably normal LV systolic function.3. No significant valvular disease.4. Dilated right ventricle. 5. High central venous pressure. 6. Unable to reliably estimate pulmonary artery pressure Atrial fibrillation with RVR rate controlled at present continue metoprolol, digoxin , eliquis Dr Perez following. Obesity and possible underlying sleep apnea will continue oxygen supplementation in hospital will need sleep study after discharge. Transaminitis probably due to fatty liver and hepatic congestion COPD will continue spiriva, levalbuterol prn will start Symbicort will get ABG Chronic bilateral lower extremity venous stasis changes Plan/VTE VTE Prophylaxis Ordered?: Yes VS, I&O, 24H, [facility] Vital Signs/I&O Vital Signs Date Time Temp Pulse Resp B/P (MAP) Pulse Ox O2 Delivery O2 Flow Rate FiO2 11/06/18 08:43 88 110/76 11/06/18 08:00 96.9 20 92 11/06/18 07:00 Room Air 11/05/18 22:00 3.0 I&O- Last 24 Hours up to 6 AM 11/06/18 06:00 Intake Total 1980 ml Output Total 1390 ml Balance 590 ml Laboratory Data 24H LABS Laboratory Tests 2 11/06/18 05:22: Immature Granulocyte % (Auto) 0.5, White Blood Count 12.6H, Red Blood Count 4.43, Hemoglobin 14.7, Hematocrit 41.9L, Mean Corpuscular Volume 94.6, Mean Corpuscular Hemoglobin 33.2H, Mean Corpuscular Hemoglobin Concent 35.1, Red Cell Distribution Width 12.9, Platelet Count 135L, Neutrophils (%) (Auto) 67.8H, Lymphocytes (%) (Auto) 18.6L, Monocytes (%) (Auto) 11.8H, Eosinophils (%) (Auto) 1.0, Basophils (%) (Auto) 0.3, Neutrophils # (Auto) 8.5H, Lymphocytes # (Auto) 2.3, Monocytes # (Auto) 1.5H, Eosinophils # (Auto) 0.1, Basophils # (Auto) 0.0, Nucleated Red Blood Cells % (auto) 0.0, Anion Gap 6L, Glomerular Filtration Rate > 60.0, Blood Urea Nitrogen 20H, Creatinine 0.70, Sodium Level 135L, Potassium Level 3.4L, Chloride Level 99, Carbon Dioxide Level 30, Calcium Level 8.1L 11/06/18 06:03: Blood Gas Bicarbonate Standard 27.8H, Arterial Blood pH 7.458H, Arterial Blood Partial Pressure CO2 40.3, Arterial Blood Partial Pressure O2 72.3L, Arterial Blood Total CO2 29.1, Arterial Blood HCO3 27.9H, Arterial Blood Base Excess 3.8H, Arterial Blood Oxygen Saturation 95.5 CBC/BMP Laboratory Tests 11/06/18 05:22 Red Blood Count 4.43, Mean Corpuscular Volume 94.6, Mean Corpuscular Hemoglobin 33.2 H, Mean Corpuscular Hemoglobin Concent 35.1, Red Cell Distribution Width 12.9, Neutrophils (%) (Auto) 67.8 H, Lymphocytes (%) (Auto) 18.6 L, Monocytes (%) (Auto) 11.8 H, Eosinophils (%) (Auto) 1.0, Basophils (%) (Auto) 0.3, Neutrophils # (Auto) 8.5 H, Lymphocytes # (Auto) 2.3, Monocytes # (Auto) 1.5 H, Eosinophils # (Auto) 0.1, Basophils # (Auto) 0.0, Calcium Level 8.1 L Microbiology Microbiology 11/03/18 Blood Culture - Preliminary, Resulted No Growth after 48 hours. All Specime... 11/03/18 Blood Culture - Preliminary, Resulted No Growth after 48 hours. All Specime... ARSEN CRABTREE MD Nov 06, 2018 09:04
--- NOTE | 2018-11-06 11:00 | IPN ---
DATE: 11/06/2018 Mr. Umanzor tells me that he is feeling better. He was able to ambulate and even though he was still a little wobbly, it was not as bad as previous days and he clearly sees improvement. Denies any dyspnea. Denies any chest pain. He remains in atrial fibrillation, which at times gets tachycardic with ambulation, but the average heart rate has been dropping and lately has been in 70s and 80s. On physical exam, he is alert and oriented and appropriate. Blood pressure 110/76. Heart rate as above. He is afebrile. Saturation has been 92-93% on room air. His fluid balance yesterday was poorly documented, but weight is 129.3 kg, which is 1/2 kg less than yesterday. His jugular venous pulse (JVP) is still elevated, but came down some, I estimate about 3 or 4 cm above the clavicle. Lungs are clear. Fair air movement, but I do not appreciate any crackles or wheezing. Heart exam continues to reveal rather muffled heart sounds due to his obesity, but I do not appreciate any gallop or rub. Abdomen is obese, but soft. No shifting dullness. His left lower extremity is free of edema, but the right lower extremity has edema to about three-quarters of his rhodes with surrounding erythema and redness. It seems to me that it is actually slightly worse than it was on the day of admission. Neurologically, he is intact. Laboratories: WBC count is 12.6, hemoglobin 14.7, hematocrit 42 and platelet count 135,000. Basic metabolic panel: Sodium 135, potassium 3.4, BUN 20, creatinine 0.7, and glucose 121. ASSESSMENT/PLAN: Mr. Umanzor is a 63-year-old man who has likely chronic atrial fibrillation and came with fever, chills and weakness. Even though it was believed to be due to pneumonia, I am not completely convinced that is the proper diagnosis and I wonder whether the cellulitis of the right lower extremity could be the actual culprit. In any case, he has been treated with fairly wide spectrum antibiotics and there has been definite improvement. As far as the heart is concerned, his atrial fibrillation has improved in rate control without changing any of his medications. I suspect that the infection was driving his tachycardia and as it is under better control then the heart rate improved as well. He also has diastolic congestive heart failure that was likely acutely exacerbated. I started him on daily IV furosemide and he seems to be improving every day, but I still think that he should lose several more pounds of excess fluids, but I think the trend is favorable and I think that we do not have to change his current medications. He received a supplemental dose of potassium this morning to replace loss. He is on full dose of spironolactone, so hopefully his potassium level will be fine tomorrow. I am hoping that he will be able to be discharged within a day or two depending on his clinical status.
--- NOTE | 2018-11-06 11:44 | REP ---
Clinical: Swelling. Technique: Valdes scale and color Doppler evaluation using linear high frequency transducer. Findings: Ultrasound examination of the right lower extremity deep venous structures from the common femoral vein to the popliteal vein demonstrates normal compressibility flow and wave patterns in response to respiration and augmentation. There is no evidence for deep venous thrombosis. Right inguinal lymph nodes are identified measuring up to 4.9 x 1.4 x 2.1 cm. Impression: No evidence for deep venous thrombosis. Right groin lymph nodes. Electronically Signed by Marcell Cortés MD 11/06/2018 11:36 A
[2018-11-06] MEDS ORDERED: METOPROLOL TART 25 MG TABLET PO ONE (21:00)
[2018-11-07] VITALS (11 sets, daily range): BP systolic 93–118; BP diastolic 67–72; O2SAT 91–99
[2018-11-07 05:11] LABS: BASO # 0.1 10^3/uL (0.0-0.2); BASO % 0.5 % (0.0-1.0); EOS # 0.2 10^3/uL (0.0-0.50); EOS % 2.3 % (0.0-3.0); LYMPH # 2.7 10^3/uL (1.5-4.5); LYMPH % 26.2 % (24.0-44.0); MEAN CORPUSCULAR HEMOGLOBIN 34.1 pg (27.0-33.0); MEAN CORPUSCULAR HGB CONC 34.9 g/dl (32.0-36.5); MEAN CORPUSCULAR VOLUME 97.7 fl (80.0-96.0); MONO # 1.5 10^3/uL (0.0-0.8); MONO % 14.7 % (0.0-5.0); NEUTROPHILS # 5.8 10^3/uL (1.8-7.7); NEUTROPHILS % 55.7 % (36.0-66.0); PLATELET COUNT, AUTOMATED 133 10^3/uL (150-450); WHITE BLOOD COUNT 10.4 10^3/uL (4.0-10.0)
[2018-11-07 05:29] LABS: BLOOD UREA NITROGEN 15 MG/DL (7-18); CARBON DIOXIDE LEVEL 30 MEQ/L (21-32); CHLORIDE LEVEL 103 MEQ/L (98-107); GLOMERULAR FILTRATION RATE > 60.0 (>49); GLUCOSE, FASTING 101 MG/DL (70-100); POTASSIUM SERUM 3.6 MEQ/L (3.5-5.1); SODIUM LEVEL 139 MEQ/L (136-145)
[2018-11-07] MEDS: SLF 3 ML SYR IV SCH (05:33)
[2018-11-07] MEDS: LevoFLOXacin 500 MG TABLET PO SCH (05:33)
[2018-11-07] MEDS: IPRATROPIUM 0.5MG/ALBUTEROL 2.5MG INH SOL UD 3ML (DUONEB)(J7620) NEB PRN (05:50)
[2018-11-07] MEDS: ACETAMINOPHEN TAB 650MG DOSE (2X325MG) PO PRN (07:49)
[2018-11-07] MEDS: LEVALBUTEROL 1.25 MG/0.5 ML CONCENTRATE NEB INH SCH (08:00)
[2018-11-07] MEDS: APIXABAN 5 MG TAB (ELIQUIS) PO SCH (08:33)
[2018-11-07] MEDS: FUROSEMIDE 40 MG/4 ML VIAL (J1940) IV SCH (08:34)
[2018-11-07] MEDS: SPIRONOLACTONE 25 MG TAB PO SCH (08:34)
[2018-11-07] MEDS: METOPROLOL SUCC (TopROL XL) 50MG **XL** TAB PO SCH (08:35)
[2018-11-07] MEDS: DIGOXIN 0.125 MG TAB PO SCH (08:35)
[2018-11-07] MEDS: TIOTROPIUM INHALER/CAPSULE (SPIRIVA) INH SCH (08:49)
[2018-11-07] MEDS: SYMBICORT 80/4.5MCG INHALER 6GM INH SCH (08:49)
[2018-11-07] MEDS ORDERED: SYMB80INH INH (09:33)
[2018-11-07] MEDS ORDERED: LEVA1TAB2 PO (09:33)
--- NOTE | 2018-11-07 14:04 | IPN ---
DATE: 11/07/2018 Mr. Umanzor has been feeling better. He has been able to ambulate without major difficulty. His prior dizziness has completely resolved. He also feels that his dyspnea is at its baseline. Denies any chest pain or sensation of palpitations. On telemetry monitoring, his heart rate has improved. It is during the day mostly in the 80s. He still gets somewhat tachycardic with exertion, but not higher than about 125. Vital signs this morning, blood pressure 116/72, heart rate 89, he is afebrile and saturation is 99% on room air. His fluid balance yesterday was not well documented. Weight is 130.1 kg, which is similar to admission. He is alert and oriented and appropriate. His jugular venous pulse (JVP) us still about 3 cm above the clavicle. Lungs are clear to auscultation with good air movement. Heart exam reveals irregularly irregular rhythm. I do not appreciate any gallop or rub. There is no significant murmur. Abdomen is obese and soft. There is still swelling of the right lower extremity with some erythema of his rhodes almost to the level of the knee, but it looks much less inflamed than yesterday. He also reported the pain has subsided considerably. Neurologically, he is intact. Laboratories: Basic metabolic panel is normal. CBC reveals hemoglobin 15, hematocrit 43, platelet count 133,000, and WBC count is 10.4. ASSESSMENT/PLAN: Mr. Umanzor is a 63-year-old man who has chronic atrial fibrillation and chronic diastolic congestive heart failure and very likely untreated sleep apnea. He presented with infection which I believe most likely was due to cellulitis of his right lower extremity, even though the CT angiography of the chest was suspicious for infiltrate in the lingula. With antibiotics, his fever subsided, white cell count has been dropping and he is feeling overall much better. As far as the atrial fibrillation is concerned, he is well rate-controlled on his current chronic medications that include 150 mg of Toprol XL twice a day plus digoxin. He has been chronically anticoagulated with Eliquis. I think he can go home today. I would increase the dose of spironolactone to 25 mg a day, but otherwise I think he can continue his daily dose of torsemide that he was on prior to his admission. I had a long discussion with the patient and I hope that I convinced him that when he returns back to [facility], which will be later this week, that he gets a sleep study in order to evaluate and very likely treat sleep apnea.
--- NOTE | 2018-11-08 00:42 | DS.PDOC ---
Discharge Summary General Date of Admission Nov 04, 2018 at 00:08 Date of Discharge 11/07/18 Discharge Summary PROCEDURES PERFORMED DURING STAY: [None]. ADMITTING DIAGNOSES: Pneumonia, Sepsis Afib with RVR DISCHARGE DIAGNOSES: Right leg Cellulitis sepsis Diastolic CHF exacerbation Acute respiratory Failure with Hypoxia Probable BECKIE needs formal sleep stdy and treatment. Obesity COPD with pulmonary hypertension and corpulmonale Transaminitis due to Hepatic congestion from right heart failure. COMPLICATIONS/CHIEF COMPLAINT: Atrial Fibrillation W/Rvr,Pneumonia,Sepsis. HISTORY OF PRESENT ILLNESS: See history and physical HOSPITAL COURSE: 63-year-old man with PMH of Atrial fibrillation, Morbid obesity, COPD, reportedly reduced systolic function in 2018 with EF of 20%, cardiac cath negative, possible sleep apnea but has resisted getting tested who resides in [facility] and is visiting here his daughter. He presented to the ED with several days history of weakness and cough prior to coming to emergency room yesterday. Eventually, he was so weak and so dizzy and lightheaded that he was unable to ambulate and asked his daughter to bring him to emergency room. He was found to be in atrial fibrillation with rapid ventricular response. He was also febrile and had elevated white cell count, hypoxic. Also, his lactic acid level was mildly elevated. CT angio chest was negative for pulmonary embolism but showed streak infiltrates in the lingula. Patient was admitted for pneumonia and afib with rvr. Pneumonia I do not think patient has pneumonia however i do think he has right leg cellulitis as it is more red and swollen than the other and also has abrasions ans scratches on it. the radiology features are more due to fluid and fibrosis. Blood cultures negative till date. No sputum available Right leg cellulitis Right leg is more red and swollen than the other and also has abrasions ans scratches on it. US Doppler negative for DVT. will continue with levofloxacin Acute respiratory failure with hypoxia due to CHF, and underlying COPD and BECKIE Diastolic CHF exacerbation and right heart failure with pulmonary hypertension will continue with lasix and spironolactone fluid restriction 1.8 liters. Echo shows: . Normal LV size with mild LVH and probably normal LV systolic function.3. No significant valvular disease.4. Dilated right ventricle. 5. High central venous pressure. 6. Unable to reliably estimate pulmonary artery pressure Atrial fibrillation with RVR rate controlled at present continue metoprolol, digoxin , eliquis Obesity and possible underlying sleep apnea will need sleep study after discharge. Transaminitis probably due to fatty liver and hepatic congestion COPD symptoma not well controlled will continue spiriva, levalbuterol prn will start Symbicort ABG does not show any Co2 retention. Did show hypoxia Chronic bilateral lower extremity venous stasis changes DISCHARGE MEDICATIONS: Please see below. ALLERGIES: Please see below. PHYSICAL EXAMINATION ON DISCHARGE: VITAL SIGNS: Please see below. General Exam: Positive: Alert, Cooperative, No Acute Distress Eye Exam: Positive: PERRLA, Conjunctiva & lids normal, EOMI; Negative: Sclera icteric ENT Exam: Positive: Mucous membr. moist/pink, Pharynx Normal Neck Exam: Positive: Supple, JVD Chest Exam: Positive: Clear to auscultation, Normal air movement Heart Exam: Positive: Tachycardic, Irregular Rhythm, Normal S1, Normal S2; Negative: Gallops, Murmurs, Rubs Telemetry: Positive: Atrial fibrillation, Tachycardia Abdomen Exam: Positive: Normal bowel sounds, Soft, Other (obese and protuberant) Extremity Exam: Positive: Edema (right > left), Other (Bilateral chroic venous stasis changes) Skin Exam: Positive: Lesion (scratch squires on su right most prominent.) Neuro Exam: Positive: Normal Speech, Strength at 5/5 X4 ext, Normal Tone LABORATORY DATA: Please see below. ACTIVITY: [As tolerated]. DIET: 2 gram sodium diet with fluid restriction to 1.8 l L/ 24 hours fluid restriction DISPOSITION: 01 Home, Self-Care. DISCHARGE INSTRUCTIONS: follow up own PMD in [facility] in 1 week Follow up with own mixer attendant in 2 weeks DISCHARGE CONDITION: [Stable]. TIME SPENT ON DISCHARGE: 40 minutes. Vital Signs/I&Os Vital Signs Date Time Temp Pulse Resp B/P (MAP) Pulse Ox O2 Delivery O2 Flow Rate FiO2 11/07/18 08:35 89 116/72 11/07/18 08:00 97.6 18 93 11/07/18 06:00 Room Air 11/06/18 12:00 I&O- Last 24 Hours up to 6 AM 11/08/18 06:00 Intake Total 270 ml Output Total 200 ml Balance 70 ml Laboratory Data Labs 24H Laboratory Tests 2 11/07/18 04:33: Immature Granulocyte % (Auto) 0.6, White Blood Count 10.4H, Red Blood Count 4.40, Hemoglobin 15.0, Hematocrit 43.0, Mean Corpuscular Volume 97.7H, Mean Corpuscular Hemoglobin 34.1H, Mean Corpuscular Hemoglobin Concent 34.9, Red Cell Distribution Width 12.9, Platelet Count 133L, Neutrophils (%) (Auto) 55.7, Lymphocytes (%) (Auto) 26.2, Monocytes (%) (Auto) 14.7H, Eosinophils (%) (Auto) 2.3, Basophils (%) (Auto) 0.5, Neutrophils # (Auto) 5.8, Lymphocytes # (Auto) 2.7, Monocytes # (Auto) 1.5H, Eosinophils # (Auto) 0.2, Basophils # (Auto) 0.1, Nucleated Red Blood Cells % (auto) 0.0, Anion Gap 6L, Glomerular Filtration Rate > 60.0, Blood Urea Nitrogen 15, Creatinine 0.70, Sodium Level 139, Potassium Level 3.6, Chloride Level 103, Carbon Dioxide Level 30, Calcium Level 8.0L CBC/BMP Laboratory Tests 11/07/18 04:33 Red Blood Count 4.40, Mean Corpuscular Volume 97.7 H, Mean Corpuscular Hemoglobin 34.1 H, Mean Corpuscular Hemoglobin Concent 34.9, Red Cell Distribution Width 12.9, Neutrophils (%) (Auto) 55.7, Lymphocytes (%) (Auto) 26.2, Monocytes (%) (Auto) 14.7 H, Eosinophils (%) (Auto) 2.3, Basophils (%) (Auto) 0.5, Neutrophils # (Auto) 5.8, Lymphocytes # (Auto) 2.7, Monocytes # (Auto) 1.5 H, Eosinophils # (Auto) 0.2, Basophils # (Auto) 0.1, Calcium Level 8.0 L Microbiology Microbiology 11/03/18 Blood Culture - Preliminary, Resulted No Growth after 72 hours. All specime... 11/03/18 Blood Culture - Preliminary, Resulted No Growth after 72 hours. All specime... Discharge Medications Scheduled Apixaban (Eliquis) 5 Mg Tablet, 5 MG PO BID, (Reported) Budesonide/Formoterol (Symbicort 80-4.5 Mcg Inhaler) 6.9 Gm Hfa.aer.ad, 2 PUFF INH RBID Digoxin (Digoxin) 125 Mcg Tablet, 125 MCG PO DAILY, (Reported) Levofloxacin (Levaquin) 500 Mg Tablet, 500 MG PO QAM Metoprolol Succinate (Metoprolol Succinate) 100 Mg Tab.er.24h, 150 MG PO BID, (Reported) Spironolactone (Spironolactone) 25 Mg Tablet, 12.5 MG PO DAILY, (Reported) Tiotropium [place] (Spiriva) 18 Mcg Cap.w.dev, 1 INHALATION INH DAILY, (Reported) Torsemide (Torsemide) 20 Mg Tablet, 40 MG PO DAILY, (Reported) Scheduled PRN Albuterol Sulf (Albuterol Sulfate) 2.5 Mg/3 Ml Vial.neb, 2.5 MG INH Q4H PRN for SHORTNESS OF BREATH, (Reported) Albuterol Sulfate (Proair Hfa) 8.5 Gm Hfa.aer.ad, 2 PUFF INH Q4H PRN for SHORTNESS OF BREATH, (Reported) Allergies Coded Allergies: lisinopril (Verified Allergy, Unknown, 11/03/18) ARSEN CRABTREE MD Nov 08, 2018 00:42
== END 2018-11-07 12:33 | disposition home or self-care (01) | DRG 720 ==
LOC: M ED 16:18 → M ED INP 11-04 00:08 → M PCU 11-04 13:36
PROVIDERS: ADMIT Family Medicine; ATTEND Internal Medicine Nephrology
DX: A41.9 Sepsis, unspecified organism (principal); J96.01 Acute respiratory failure with hypoxia; I50.31 Acute diastolic (congestive) heart failure; E87.2 Acidosis; I27.20 Pulmonary hypertension, unspecified; E66.01 Morbid (severe) obesity due to excess calories; I27.81 Cor pulmonale (chronic); I48.91 Unspecified atrial fibrillation; J44.9 Chronic obstructive pulmonary disease, unspecified; G47.33 Obstructive sleep apnea (adult) (pediatric); L03.115 Cellulitis of right lower limb; Z79.899 Other long term (current) drug therapy; Z88.8 Allergy status to other drugs, medicaments and biological substances; Z79.01 Long term (current) use of anticoagulants

== ENCOUNTER 2020-11-18 11:16 | Emergency (ER) | payer MEDICARE, OTHER ==
[~2020-11-18] VITALS: Ht 185.4 cm; Wt 140.0 kg
[~2020-11-18 11:16] MED LIST: ALBU83IN INH; DIGO0.123 PO; ELIQ5TAB PO; LEVA1TAB2 PO; METO1TAB33 PO; PROAAER10 INH; SPIR-10 PO; SPIR1CAP INH; SYMB80INH INH; TORS20TA2 PO; metoprolol er
[2020-11-18 12:11] LABS: BASO # 0.1 10^3/uL (0.0-0.2); BASO % 0.4 % (0.0-1.0); EOS # 0.3 10^3/uL (0.0-0.5); EOS % 2.3 % (0.0-3.0); HEMATOCRIT 49.4 % (42.0-52.0); HEMOGLOBIN 16.8 g/dl (13.5-17.5); MEAN CORPUSCULAR HEMOGLOBIN 32.2 pg (27.0-33.0); MEAN CORPUSCULAR VOLUME 94.6 fl (80.0-96.0); MONO % 8.4 % (2.0-8.0); NEUTROPHILS % 64.4 % (36.0-66.0); PLATELET COUNT, AUTOMATED 203 10^3/uL (150-450); RED BLOOD COUNT 5.22 10^6/uL (4.30-6.10); WHITE BLOOD COUNT 12.4 10^3/uL (4.0-10.0)
--- NOTE | 2020-11-18 12:20 | REP ---
INDICATION: DYSPNEA/COUGH. COMPARISON: CT angio 11/03/2018, AP chest 11/03/2018. TECHNIQUE: Portable AP upright FINDINGS: Basilar fibrotic changes noted bilaterally with suspected superimposed patchy atelectasis or infiltrate left base adjacent to the heart border and above the right diaphragm to a lesser extent. No dense consolidation with air bronchograms. No definite effusion. Mid and upper lung zones are clear. Heart not grossly enlarged for AP portable technique. I do not see vascular redistribution or pulmonary edema. The aorta is mildly calcified at the arch but without gross aneurysm. Pulmonary arteries are symmetric and unchanged from the previous study. Appears to been prior distal clavicular excisions. Minor degenerative changes of the shoulders and spine. IMPRESSION: 1. No gross cardiomegaly or vascular redistribution. Anup edema or definite effusion. 2. Basilar interstitial changes with superimposed patchy atelectasis or infiltrate left greater than right without air bronchograms. Mid and upper lung zones clear. <Electronically signed by Bahman Corea > 11/18/20 [id number]
[2020-11-18 12:43] LABS: ALBUMIN 3.3 GM/DL (3.2-5.2); ALT/SGPT 54 U/L (12-78); BILIRUBIN,DIRECT 0.1 MG/DL (0.0-0.2); BILIRUBIN,TOTAL 0.6 MG/DL (0.2-1.0); BLOOD UREA NITROGEN 17 MG/DL (7-18); CALCIUM LEVEL 8.6 MG/DL (8.8-10.2); CARBON DIOXIDE LEVEL 33 MEQ/L (21-32); CHLORIDE LEVEL 101 MEQ/L (98-107); CK-MB VALUE MASS 5.7 NG/ML (<3.6); CPK CREATINE PHOSPHOKINASE 162 U/L (39-308); GLOMERULAR FILTRATION RATE > 60.0 (>49); GLUCOSE, FASTING 127 MG/DL (70-100); MB/CK RELATIVE INDEX 3.52 (< OR =4); NT-PRO BNP 1900 PG/ML (<125); POTASSIUM SERUM 4.5 MEQ/L (3.5-5.1); SODIUM LEVEL 138 MEQ/L (136-145); TOTAL PROTEIN 7.5 GM/DL (6.4-8.2); TROPONIN I < 0.02 NG/ML (< 0.10)
[2020-11-18] MEDS ORDERED: dexameTHASONE 20MG/5ML VIAL (J1100 PER 1MG) IV ONE (13:20)
[2020-11-18] MEDS: COMBIVENT RESPIMAT 100-20MCG INHALER 4GM INH SCH ×3 (13:26→14:12)
[2020-11-18] MEDS ORDERED: FUROSEMIDE 100MG/10ML VIAL (J1940) IV ONE (15:00)
[2020-11-18 18:15] VITALS: BP 131/88
[2020-11-18] MEDS ORDERED: PRED10TA2 PO (18:27)
--- NOTE | 2020-11-18 22:13 | ECGEPIP ---
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
--- NOTE | 2020-11-19 13:33 | ED PDOC ---
Post-Departure Follow-Up dr simon faxed pcxr report for Dedrick Ernandez MD Nov 19, 2020 13:33
== END 2020-11-18 18:45 | disposition home or self-care (01) ==
LOC: M ED 11:16
DX: J44.1 Chronic obstructive pulmonary disease with (acute) exacerbation (principal); I50.89 Other heart failure; I48.91 Unspecified atrial fibrillation; G47.33 Obstructive sleep apnea (adult) (pediatric)
CPT/HCPCS: 71045; 80048; 80076; 82550; 82553; 83880; 84436; 84443; 84484; 85025; 87798; 93005; 93041; 94640; 94760; 96374; 96375; 99285; J1100; J1940

== ENCOUNTER → 2020-12-04 | Outpatient (CLI) | payer MEDICARE ==
[~2020-12-04] MED LIST changes: +ADV250INH INH; +FENO145T7 PO; +INCR1INH INH; +LOSA25TA13 PO; +PRED10TA2 PO; +PRED20TA PO; +SERT50TA29 PO
[2020-12-04 20:04] LABS: BASO # 0.1 10^3/uL (0.0-0.2); BASO % 0.4 % (0.0-1.0); EOS # 0.3 10^3/uL (0.0-0.5); EOS % 1.7 % (0.0-3.0); HEMATOCRIT 49.3 % (42.0-52.0); HEMOGLOBIN 16.4 g/dl (13.5-17.5); LYMPH # 4.8 10^3/uL (1.5-5.0); LYMPH % 31.7 % (24.0-44.0); MEAN CORPUSCULAR HEMOGLOBIN 32.7 pg (27.0-33.0); MEAN CORPUSCULAR HGB CONC 33.3 g/dl (32.0-36.5); MEAN CORPUSCULAR VOLUME 98.2 fl (80.0-96.0); MONO # 1.4 10^3/uL (0.0-0.8); MONO % 9.4 % (2.0-8.0); NEUTROPHILS # 8.5 10^3/uL (1.5-8.5); NEUTROPHILS % 56.3 % (36.0-66.0); PLATELET COUNT, AUTOMATED 197 10^3/uL (150-450); RED BLOOD COUNT 5.02 10^6/uL (4.30-6.10); WHITE BLOOD COUNT 15.1 10^3/uL (4.0-10.0)
[2020-12-04 20:51] LABS: ALBUMIN 2.9 GM/DL (3.2-5.2); ALT/SGPT 28 U/L (12-78); BILIRUBIN,TOTAL 0.5 MG/DL (0.2-1.0); BLOOD UREA NITROGEN 29 MG/DL (7-18); CALCIUM LEVEL 8.2 MG/DL (8.8-10.2); CARBON DIOXIDE LEVEL 34 MEQ/L (21-32); CHLORIDE LEVEL 101 MEQ/L (98-107); CHOLESTEROL LEVEL 242 MG/DL (<200); CHOLESTEROL RISK RATIO 6.722 (<5); CREATININE FOR GFR 0.82 MG/DL (0.70-1.30); DIGOXIN LEVEL 0.2 NG/ML (0.5-2.0); GLOMERULAR FILTRATION RATE > 60.0 (>49); GLUCOSE, FASTING 111 MG/DL (70-100); HDL CHOLESTEROL 36 MG/DL (>40); NON-HDL-C 206 MG/DL; POTASSIUM SERUM 3.9 MEQ/L (3.5-5.1); SODIUM LEVEL 142 MEQ/L (136-145); TOTAL PROTEIN 6.2 GM/DL (6.4-8.2); TRIGLYCERIDES LEVEL 490 MG/DL (<150)
== END ==
LOC: M WUC 15:44
PROVIDERS: ATTEND Nurse Practitioner Family
DX: I10 Essential (primary) hypertension (principal); E78.2 Mixed hyperlipidemia; I48.91 Unspecified atrial fibrillation

== ENCOUNTER → 2021-03-25 | Outpatient (CLI) | payer MEDICARE ==
[~2021-03-25] MED LIST changes: -ADV250INH INH; -FENO145T7 PO; -INCR1INH INH; -LOSA25TA13 PO; -PRED20TA PO; -SERT50TA29 PO
[2021-03-25 16:33] LABS: ALBUMIN 3.1 GM/DL (3.2-5.2); ALT/SGPT 159 U/L (12-78); BILIRUBIN,TOTAL 0.6 MG/DL (0.2-1.0); BLOOD UREA NITROGEN 21 MG/DL (7-18); CALCIUM LEVEL 9.1 MG/DL (8.8-10.2); CARBON DIOXIDE LEVEL 33 MEQ/L (21-32); CHLORIDE LEVEL 101 MEQ/L (98-107); CHOLESTEROL LEVEL 173 MG/DL (<200); CHOLESTEROL RISK RATIO 5.242 (<5); CREATININE FOR GFR 0.95 MG/DL (0.70-1.30); GLOMERULAR FILTRATION RATE > 60.0 (>49); GLUCOSE, FASTING 121 MG/DL (70-100); HDL CHOLESTEROL 33 MG/DL (>40); LDL CHOLESTEROL 97 MG/DL (<100); NON-HDL-C 140 MG/DL; POTASSIUM SERUM 4.2 MEQ/L (3.5-5.1); SODIUM LEVEL 139 MEQ/L (136-145); TOTAL PROTEIN 7.1 GM/DL (6.4-8.2); TRIGLYCERIDES LEVEL 215 MG/DL (<150)
[2021-03-25 17:08] LABS: HEMOGLOBIN A1c 6.3 %
== END ==
LOC: M WUC 11:05
PROVIDERS: ATTEND Nurse Practitioner Family
DX: E78.2 Mixed hyperlipidemia (principal); R73.01 Impaired fasting glucose

== ENCOUNTER → 2021-04-10 | Outpatient (CLI) | payer MEDICARE ==
--- NOTE | 2021-04-10 18:34 | REP ---
INDICATION: PERSONAL HX NICOTINE DEPENDENCE. COMPARISON: 11/03/2018. TECHNIQUE: Low dose screening CT chest performed without the use of intravenous contrast. FINDINGS: Lungs: Clear, no infiltrate or nodule. There are mild diffuse fibrotic changes bilaterally. Heart: Not enlarged. Thoracic aorta: The ascending thoracic aorta has a maximum diameter 4.7 cm, unchanged. There is evidence of cholelithiasis. Visualized osseous structures: There are degenerative changes of the spine.. IMPRESSION: Category 1 negative low dose noncontrast CT chest. <Electronically signed by Trevin Valdes > 04/10/21 [id number]
== END ==
LOC: M RAD 15:32
PROVIDERS: ATTEND Physician Assistant
DX: Z12.2 Encounter for screening for malignant neoplasm of respiratory organs (principal); Z87.891 Personal history of nicotine dependence

== ENCOUNTER 2021-05-23 10:43 | Inpatient (IN) | payer MEDICARE ==
[~2021-05-23] VITALS: Ht 185.4 cm; Wt 137.8 kg
[2021-05-23] MEDS ORDERED: FENO145T7 PO (11:04)
[2021-05-23] MEDS ORDERED: SERT50TA29 PO (11:04)
[2021-05-23 11:31] LABS: ABG BASE EXCESS 0.6 (-2.0-2.0); ABG HCO3 24.7 MEQ/L (22.0-26.0); ABG O2 SATURATION 96.5 % (95.0-99.0); ABG PARTIAL PRESSURE CO2 38.1 mmHg (35.0-45.0); ABG PARTIAL PRESSURE O2 80.5 mmHg (75.0-100.0); ABG TOTAL CO2 25.8 MEQ/L (23.0-31.0); ABG pH (ARTERIAL) 7.429 UNITS (7.350-7.450)
[2021-05-23 12:33] LABS: CK-MB VALUE MASS 2.5 NG/ML (<3.6); MB/CK RELATIVE INDEX 2.45 (< OR =4)
[2021-05-23 12:49] LABS: ALBUMIN 3.1 GM/DL (3.2-5.2); ALT/SGPT 86 U/L (12-78); BILIRUBIN,DIRECT 0.3 MG/DL (0.0-0.2); BILIRUBIN,TOTAL 1.5 MG/DL (0.2-1.0); BLOOD UREA NITROGEN 23 MG/DL (7-18); CALCIUM LEVEL 8.9 MG/DL (8.8-10.2); CARBON DIOXIDE LEVEL 25 MEQ/L (21-32); CHLORIDE LEVEL 101 MEQ/L (98-107); CREATININE FOR GFR 1.07 MG/DL (0.70-1.30); DIGOXIN LEVEL 0.9 NG/ML (0.5-2.0); GLOMERULAR FILTRATION RATE > 60.0 (>49); GLUCOSE, FASTING 217 MG/DL (70-100); NT-PRO BNP 2746 PG/ML (<125); POTASSIUM SERUM 4.9 MEQ/L (3.5-5.1); SODIUM LEVEL 134 MEQ/L (136-145); TOTAL PROTEIN 7.7 GM/DL (6.4-8.2)
[2021-05-23 13:23] LABS: BASO # 0.1 10^3/uL (0.0-0.2); BASO % 0.4 % (0.0-1.0); EOS # 0.1 10^3/uL (0.0-0.5); EOS % 0.4 % (0.0-3.0); HEMATOCRIT 45.4 % (42.0-52.0); HEMOGLOBIN 15.4 g/dl (13.5-17.5); LYMPH # 2.1 10^3/uL (1.5-5.0); LYMPH % 10.6 % (24.0-44.0); MEAN CORPUSCULAR HEMOGLOBIN 32.1 pg (27.0-33.0); MEAN CORPUSCULAR HGB CONC 33.9 g/dl (32.0-36.5); MEAN CORPUSCULAR VOLUME 94.6 fl (80.0-96.0); MONO % 9.7 % (2.0-8.0); NEUTROPHILS # 15.5 10^3/uL (1.5-8.5); NEUTROPHILS % 78.3 % (36.0-66.0); PLATELET COUNT, AUTOMATED 204 10^3/uL (150-450); WHITE BLOOD COUNT 19.7 10^3/uL (4.0-10.0)
[2021-05-23] MEDS ORDERED: FUROSEMIDE 40MG/4ML VIAL (J1940) IV ONE (13:25)
[2021-05-23 13:58] LABS: MONO # 1.9 10^3/uL (0.0-0.8)
[2021-05-23] MEDS ORDERED: INCR1INH INH (16:16)
[2021-05-23] MEDS ORDERED: ADV250INH INH (16:16)
[2021-05-23] MEDS ORDERED: LOSA25TA13 PO (16:16)
[2021-05-23] MEDS ORDERED: HOME MED LIST COMPLETE! XX SCH (16:20)
[2021-05-23] MEDS ORDERED: ALBUTEROL 90 MCG/ACT 8GM HFA INHALER INH PRN (18:10)
[2021-05-23] MEDS ORDERED: ACETAMINOPHEN TAB 650MG DOSE (2X325MG) PO PRN (18:10)
[2021-05-23] MEDS ORDERED: ALBUTEROL SULFATE 2.5 MG/0.5 ML INH NEB SOLN INH PRN (18:10)
[2021-05-23] MEDS ORDERED: PILL CUTTER 1 EACH XX PRN (18:35)
[2021-05-23] MEDS: ADVAIR HFA 115/21MCG INHALER INH SCH (20:00)
[2021-05-23] MEDS: APIXABAN 5 MG TAB (ELIQUIS) PO SCH (21:04)
[2021-05-23] MEDS: FUROSEMIDE 40MG/4ML VIAL (J1940) IV SCH (21:04)
[2021-05-23 21:30] VITALS: BP 113/78
[2021-05-24 05:48] LABS: BASO # 0.1 10^3/uL (0.0-0.2); BASO % 0.3 % (0.0-1.0); EOS # 0.1 10^3/uL (0.0-0.5); EOS % 0.7 % (0.0-3.0); HEMATOCRIT 44.4 % (42.0-52.0); LYMPH # 2.3 10^3/uL (1.5-5.0); MEAN CORPUSCULAR HGB CONC 33.8 g/dl (32.0-36.5); MEAN CORPUSCULAR VOLUME 94.7 fl (80.0-96.0); MONO % 10.3 % (2.0-8.0); NEUTROPHILS # 14.5 10^3/uL (1.5-8.5); NEUTROPHILS % 75.9 % (36.0-66.0); PLATELET COUNT, AUTOMATED 199 10^3/uL (150-450); RED BLOOD COUNT 4.69 10^6/uL (4.30-6.10); WHITE BLOOD COUNT 19.1 10^3/uL (4.0-10.0)
[2021-05-24] MEDS: FUROSEMIDE 40MG/4ML VIAL (J1940) IV SCH (05:49)
[2021-05-24 05:52] VITALS: BP 115/69
[2021-05-24 06:10] LABS: ALT/SGPT 68 U/L (12-78); BILIRUBIN,TOTAL 1.5 MG/DL (0.2-1.0); BLOOD UREA NITROGEN 30 MG/DL (7-18); CALCIUM LEVEL 8.6 MG/DL (8.8-10.2); CARBON DIOXIDE LEVEL 28 MEQ/L (21-32); CHLORIDE LEVEL 100 MEQ/L (98-107); CREATININE FOR GFR 1.14 MG/DL (0.70-1.30); GLOMERULAR FILTRATION RATE > 60.0 (>49); GLUCOSE, FASTING 142 MG/DL (70-100); MAGNESIUM LEVEL 1.9 MG/DL (1.8-2.4); NT-PRO BNP 1065 PG/ML (<125); POTASSIUM SERUM 4.2 MEQ/L (3.5-5.1); SODIUM LEVEL 135 MEQ/L (136-145); TOTAL PROTEIN 7.9 GM/DL (6.4-8.2)
[2021-05-24] MEDS: ADVAIR HFA 115/21MCG INHALER INH SCH ×2 (08:07→19:31)
[2021-05-24] MEDS: SERTRALINE HCL 50 MG TAB PO SCH (08:10)
[2021-05-24] MEDS: APIXABAN 5 MG TAB (ELIQUIS) PO SCH ×2 (08:10→21:50)
[2021-05-24] MEDS: SPIRONOLACTONE 25 MG TAB PO SCH (08:11)
[2021-05-24] MEDS: DIGOXIN 0.125 MG TAB PO SCH (08:11)
[2021-05-24] MEDS: FENOFIBRATE 145MG TABLET (TRICOR) PO SCH (08:11)
[2021-05-24] MEDS: METOPROLOL SUCC (TopROL XL) 100MG *XL* TAB PO SCH (08:16)
[2021-05-24] MEDS: LOSARTAN 25 MG TAB PO SCH (08:16)
[2021-05-24] MEDS: VANCOMYCIN HCL 1,000 MG, VIAL MATE ADAPTER 1 EACH in NS 250 ML IV SCH ×2 (09:19→21:51)
[2021-05-24] MEDS ORDERED: VANCOMYCIN HCL 1,000 MG, VIAL MATE ADAPTER 1 EACH in NS 250 ML IV ONE (10:00)
[2021-05-24] MEDS: predniSONE 20 MG TAB PO SCH (10:32)
[2021-05-24 14:00] VITALS: BP 125/79
[2021-05-24 20:30] VITALS: BP 121/80
[2021-05-25 05:47] VITALS: BP 107/71
[2021-05-25] MEDS: ADVAIR HFA 115/21MCG INHALER INH SCH (07:48)
[2021-05-25] MEDS ORDERED: TORSEMIDE 20 MG TAB PO SCH (09:00)
[2021-05-25] MEDS: SPIRONOLACTONE 25 MG TAB PO SCH (10:18)
[2021-05-25] MEDS: predniSONE 20 MG TAB PO SCH (10:20)
[2021-05-25] MEDS: SERTRALINE HCL 50 MG TAB PO SCH (10:21)
[2021-05-25] MEDS: METOPROLOL SUCC (TopROL XL) 100MG *XL* TAB PO SCH (10:21)
[2021-05-25] MEDS: APIXABAN 5 MG TAB (ELIQUIS) PO SCH (10:21)
[2021-05-25 10:22] VITALS: BP 112/72
[2021-05-25] MEDS: LOSARTAN 25 MG TAB PO SCH (10:22)
[2021-05-25] MEDS: FENOFIBRATE 145MG TABLET (TRICOR) PO SCH (10:22)
[2021-05-25] MEDS: DIGOXIN 0.125 MG TAB PO SCH (10:27)
[2021-05-25 11:25] VITALS: O2SAT 91
[2021-05-25] MEDS ORDERED: PRED20TA PO (11:30)
== END 2021-05-25 14:58 | disposition home or self-care (01) | DRG 292 ==
LOC: M ED 10:43 → M ED INP 18:10 → M MSPAV 21:20
PROVIDERS: ADMIT Family Medicine; ATTEND Family Medicine
DX: I50.33 Acute on chronic diastolic (congestive) heart failure (principal); J44.1 Chronic obstructive pulmonary disease with (acute) exacerbation; I48.20 Chronic atrial fibrillation, unspecified; Z68.41 Body mass index [BMI] 40.0-44.9, adult; E87.2 Acidosis; E66.01 Morbid (severe) obesity due to excess calories; D72.829 Elevated white blood cell count, unspecified; Z79.899 Other long term (current) drug therapy; Z88.8 Allergy status to other drugs, medicaments and biological substances; G47.33 Obstructive sleep apnea (adult) (pediatric); Z87.891 Personal history of nicotine dependence; I11.0 Hypertensive heart disease with heart failure

== ENCOUNTER → 2021-07-29 | Outpatient (CLI) | payer MEDICARE ==
[~2021-07-29] MED LIST changes: +ADV250INH INH; +FENO145T7 PO; +INCR1INH INH; +LOSA25TA13 PO; +PRED20TA PO; +SERT50TA29 PO
[2021-07-29 12:51] LABS: ALBUMIN 3.7 GM/DL (3.2-5.2); ALT/SGPT 160 U/L (12-78); BILIRUBIN,TOTAL 0.6 MG/DL (0.2-1.0); BLOOD UREA NITROGEN 36 MG/DL (7-18); CALCIUM LEVEL 9.5 MG/DL (8.8-10.2); CARBON DIOXIDE LEVEL 35 MEQ/L (21-32); CHLORIDE LEVEL 100 MEQ/L (98-107); CHOLESTEROL LEVEL 174 MG/DL (<200); CHOLESTEROL RISK RATIO 4.833 (<5); CREATININE FOR GFR 1.26 MG/DL (0.70-1.30); GLOMERULAR FILTRATION RATE > 60.0 (>49); GLUCOSE, FASTING 115 MG/DL (70-100); HDL CHOLESTEROL 36 MG/DL (>40); LDL CHOLESTEROL 100 MG/DL (<100); NON-HDL-C 138 MG/DL; POTASSIUM SERUM 4.5 MEQ/L (3.5-5.1); SODIUM LEVEL 139 MEQ/L (136-145); TOTAL PROTEIN 7.9 GM/DL (6.4-8.2); TRIGLYCERIDES LEVEL 191 MG/DL (<150)
[2021-07-29 13:01] LABS: CREATININE, URINE 14.6 MG/DL; MALB URINE SIEMENS < 5.0 MG/L; MAU/CREAT RATIO 34.2 MCG/MG (0.0-30.0)
[2021-07-29 13:24] LABS: HEMOGLOBIN A1c 6.4 %
== END ==
LOC: M WUC 11:00
PROVIDERS: ATTEND Nurse Practitioner Family
DX: E78.2 Mixed hyperlipidemia (principal); I10 Essential (primary) hypertension; R73.03 Prediabetes

== ENCOUNTER → 2021-09-01 | Outpatient (CLI) | payer MEDICARE | LOC: M SLEEP 20:00 | PROVIDERS: ATTEND Physician Assistant | DX: G47.33 Obstructive sleep apnea (adult) (pediatric) (principal) ==

== ENCOUNTER 2021-11-18 10:01 | Emergency (ER) | payer MEDICARE ==
[~2021-11-18] VITALS: Ht 185.4 cm; Wt 130.9 kg
[~2021-11-18 10:01] MED LIST changes: +ALBU2.5V10 INH; -ALBU83IN INH
[2021-11-18 10:33] LABS: BASO # 0.1 10^3/uL (0.0-0.2); BASO % 0.5 % (0.0-1.0); EOS # 0.2 10^3/uL (0.0-0.5); HEMATOCRIT 48.7 % (42.0-52.0); HEMOGLOBIN 16.8 g/dl (13.5-17.5); LYMPH # 2.4 10^3/uL (1.5-5.0); LYMPH % 19.9 % (24.0-44.0); MEAN CORPUSCULAR HEMOGLOBIN 32.1 pg (27.0-33.0); MEAN CORPUSCULAR HGB CONC 34.5 g/dl (32.0-36.5); MEAN CORPUSCULAR VOLUME 93.1 fl (80.0-96.0); MONO # 1.1 10^3/uL (0.0-0.8); MONO % 8.7 % (2.0-8.0); NEUTROPHILS # 8.4 10^3/uL (1.5-8.5); NEUTROPHILS % 68.4 % (36.0-66.0); PLATELET COUNT, AUTOMATED 193 10^3/uL (150-450); RED BLOOD COUNT 5.23 10^6/uL (4.30-6.10); WHITE BLOOD COUNT 12.3 10^3/uL (4.0-10.0)
[2021-11-18 10:44] LABS: INR 1.14
[2021-11-18 11:03] LABS: ALBUMIN 3.6 GM/DL (3.2-5.2); ALT/SGPT 80 U/L (12-78); BILIRUBIN,DIRECT 0.4 MG/DL (0.0-0.2); BILIRUBIN,TOTAL 0.9 MG/DL (0.2-1.0); BLOOD UREA NITROGEN 24 MG/DL (7-18); CALCIUM LEVEL 9.2 MG/DL (8.8-10.2); CARBON DIOXIDE LEVEL 35 MEQ/L (21-32); CHLORIDE LEVEL 93 MEQ/L (98-107); CREATININE FOR GFR 1.14 MG/DL (0.70-1.30); GLOMERULAR FILTRATION RATE > 60.0 (>49); GLUCOSE, FASTING 134 MG/DL (70-100); LIPASE 101 U/L (73-393); POTASSIUM SERUM 4.3 MEQ/L (3.5-5.1); SODIUM LEVEL 137 MEQ/L (136-145); TOTAL PROTEIN 8.5 GM/DL (6.4-8.2)
[2021-11-18 11:07] LABS: CK-MB VALUE MASS 6.4 NG/ML (<3.6); MB/CK RELATIVE INDEX 4.89 (< OR =4)
[2021-11-18 11:52] LABS: NT-PRO BNP 693 PG/ML (<125)
[2021-11-18 11:54] LABS: RSV AMPLIFICATION NEGATIVE (NEGATIVE)
[2021-11-18] MEDS ORDERED: ISOVUE-370 76% 100ML VIAL As Ordered ONE (12:02)
[2021-11-18 12:52] LABS: CK-MB VALUE MASS 5.7 NG/ML (<3.6); MB/CK RELATIVE INDEX 5.23 (< OR =4)
[2021-11-18] MEDS ORDERED: methylPREDNISolone 125MG 2ML VIAL IV ONE (15:05)
[2021-11-18] MEDS ORDERED: AZITHROMYCIN 250MG TABLET PO ONE (15:05)
[2021-11-18] MEDS ORDERED: COMBIVENT RESPIMAT 100-20MCG INHALER 4GM INH ONE (15:05)
[2021-11-18] MEDS ORDERED: AZIT-12 PO (15:11)
[2021-11-18] MEDS ORDERED: PRED20TA PO (15:11)
[2021-11-18 16:00] VITALS: BP 138/71
== END 2021-11-18 16:22 | disposition home or self-care (01) ==
LOC: M ED 10:01
DX: J44.1 Chronic obstructive pulmonary disease with (acute) exacerbation (principal); F17.200 Nicotine dependence, unspecified, uncomplicated; F10.10 Alcohol abuse, uncomplicated; Z86.79 Personal history of other diseases of the circulatory system; Z88.8 Allergy status to other drugs, medicaments and biological substances; Z79.51 Long term (current) use of inhaled steroids; Z79.899 Other long term (current) drug therapy
CPT/HCPCS: 71045; 71275; 80048; 80076; 82550; 82553; 83690; 83880; 84484; 85025; 85610; 87631; 93005; 93041; 94640; 94664; 94760; 96374; 99285; J2930; Q9967

== ENCOUNTER → 2022-02-18 | Outpatient (CLI) | payer MEDICARE ==
[~2022-02-18] MED LIST changes: +AZIT-12 PO
[2022-02-18 12:18] LABS: HEMOGLOBIN 15.8 g/dl (13.5-17.5); MEAN CORPUSCULAR HEMOGLOBIN 31.7 pg (27.0-33.0); MEAN CORPUSCULAR HGB CONC 32.9 g/dl (32.0-36.5); MEAN CORPUSCULAR VOLUME 96.2 fl (80.0-96.0); PLATELET COUNT, AUTOMATED 201 10^3/uL (150-450); RED BLOOD COUNT 4.99 10^6/uL (4.30-6.10); WHITE BLOOD COUNT 9.7 10^3/uL (4.0-10.0)
[2022-02-18 12:34] LABS: INR 1.08; PROTHROMBIN TIME 14.2 SECONDS (12.5-14.5)
[2022-02-18 12:48] LABS: ALBUMIN 3.5 GM/DL (3.2-5.2); ALT/SGPT 93 U/L (12-78); BILIRUBIN,TOTAL 0.9 MG/DL (0.2-1.0); BLOOD UREA NITROGEN 21 MG/DL (7-18); CALCIUM LEVEL 9.3 MG/DL (8.8-10.2); CARBON DIOXIDE LEVEL 35 MEQ/L (21-32); CHLORIDE LEVEL 96 MEQ/L (98-107); CREATININE FOR GFR 1.07 MG/DL (0.70-1.30); GLOMERULAR FILTRATION RATE > 60.0 (>49); GLUCOSE, FASTING 155 MG/DL (70-100); POTASSIUM SERUM 4.2 MEQ/L (3.5-5.1); SODIUM LEVEL 136 MEQ/L (136-145); TOTAL PROTEIN 7.7 GM/DL (6.4-8.2)
[2022-02-18 13:31] LABS: HEPATITIS B SURFACE ANTIGEN NEGATIVE (NEGATIVE)
[2022-02-18 14:00] LABS: HIV 1&2 SCREEN CENTAUR NEGATIVE (NEGATIVE)
[2022-02-18 14:08] LABS: HEPATITIS C VIRUS ABY INDEX > 11.0 INDEX (<0.8)
== END ==
LOC: M WUC 09:47
PROVIDERS: ATTEND Internal Medicine Infectious Disease
DX: K74.60 Unspecified cirrhosis of liver (principal); Z86.19 Personal history of other infectious and parasitic diseases

== ENCOUNTER → 2022-05-23 | Outpatient (CLI) | payer MEDICARE ==
[2022-05-23 19:32] LABS: BASO # 0.1 10^3/uL (0.0-0.2); BASO % 0.5 % (0.0-1.0); EOS # 0.3 10^3/uL (0.0-0.5); EOS % 2.3 % (0.0-3.0); HEMATOCRIT 48.8 % (42.0-52.0); HEMOGLOBIN 15.8 g/dl (13.5-17.5); LYMPH % 26.9 % (24.0-44.0); MEAN CORPUSCULAR HEMOGLOBIN 31.3 pg (27.0-33.0); MEAN CORPUSCULAR HGB CONC 32.4 g/dl (32.0-36.5); MEAN CORPUSCULAR VOLUME 96.8 fl (80.0-96.0); MONO # 1.1 10^3/uL (0.0-0.8); MONO % 9.4 % (2.0-8.0); NEUTROPHILS # 6.9 10^3/uL (1.5-8.5); NEUTROPHILS % 60.5 % (36.0-66.0); PLATELET COUNT, AUTOMATED 194 10^3/uL (150-450); RED BLOOD COUNT 5.04 10^6/uL (4.30-6.10); WHITE BLOOD COUNT 11.3 10^3/uL (4.0-10.0)
[2022-05-23 19:40] LABS: ALBUMIN 3.3 G/DL (3.2-5.2); ALKALINE PHOSPHATASE 50 U/L (46-116); ALT/SGPT 15 U/L (7.0-40); AST/SGOT 25 U/L (<34); BILIRUBIN,TOTAL 0.6 MG/DL (0.3-1.2); BLOOD UREA NITROGEN 14 MG/DL (9-23); CALCIUM LEVEL 9.2 MG/DL (8.3-10.6); CARBON DIOXIDE LEVEL > 40.0 MMOL/L (20-31); CHLORIDE LEVEL 94 MMOL/L (98-107); CREATININE FOR GFR 0.94 MG/DL (0.70-1.30); GLOMERULAR FILTRATION RATE > 60.0 (>49); GLUCOSE, FASTING 122 MG/DL (74-106); POTASSIUM SERUM 4.2 MMOL/L (3.5-5.1); SODIUM LEVEL 139 MMOL/L (136-145); TOTAL PROTEIN 7.2 G/DL (5.7-8.2)
== END ==
LOC: M WUC 15:28
PROVIDERS: ATTEND Internal Medicine Infectious Disease
DX: B18.2 Chronic viral hepatitis C (principal)

== ENCOUNTER 2022-06-19 08:05 | Inpatient (IN) | payer MEDICARE, OTHER ==
[~2022-06-19] VITALS: Ht 185.4 cm; Wt 132.1 kg
[2022-06-19] MEDS ORDERED: IPRATROPIUM 0.5MG/ALBUTEROL 2.5MG INH SOL UD 3ML (DUONEB) NEB ONE (08:45)
[2022-06-19 08:49] LABS: BASO % 0.5 % (0.0-1.0); EOS # 0.2 10^3/uL (0.0-0.5); EOS % 2.4 % (0.0-3.0); HEMOGLOBIN 15.4 g/dl (13.5-17.5); LYMPH # 2.2 10^3/uL (1.5-5.0); LYMPH % 24.2 % (24.0-44.0); MEAN CORPUSCULAR HEMOGLOBIN 31.7 pg (27.0-33.0); MEAN CORPUSCULAR HGB CONC 33.5 g/dl (32.0-36.5); MEAN CORPUSCULAR VOLUME 94.7 fl (80.0-96.0); MONO # 0.9 10^3/uL (0.0-0.8); MONO % 9.6 % (2.0-8.0); NEUTROPHILS # 5.6 10^3/uL (1.5-8.5); PLATELET COUNT, AUTOMATED 195 10^3/uL (150-450); RED BLOOD COUNT 4.86 10^6/uL (4.30-6.10); WHITE BLOOD COUNT 8.9 10^3/uL (4.0-10.0)
[2022-06-19] MEDS ORDERED: ADV500INH INH (08:56)
[2022-06-19] MEDS ORDERED: IPRATROPIUM 0.5MG/ALBUTEROL 2.5MG INH SOL UD 3ML (DUONEB) As Ordered ONE (09:01)
[2022-06-19] MEDS ORDERED: EPCL1TAB PO (09:02)
[2022-06-19] MEDS ORDERED: LOSA25TA13 PO (09:02)
[2022-06-19 09:12] LABS: ABG BASE EXCESS 6.2 (-2.0-2.0); ABG HCO3 33.7 MEQ/L (22.0-26.0); ABG O2 SATURATION 95.7 % (95.0-99.0); ABG PARTIAL PRESSURE CO2 59.4 mmHg (35.0-45.0); ABG PARTIAL PRESSURE O2 80.4 mmHg (75.0-100.0); ABG STANDARD HCO3 30.1 MEQ/L (22.0-26.0); ABG TOTAL CO2 35.5 MEQ/L (23.0-31.0); ABG pH (ARTERIAL) 7.372 UNITS (7.350-7.450)
[2022-06-19 09:13] LABS: ALBUMIN 3.5 G/DL (3.2-5.2); ALKALINE PHOSPHATASE 46 U/L (46-116); ALT/SGPT 17 U/L (7.0-40); AST/SGOT 24 U/L (<34); BILIRUBIN,DIRECT 0.2 MG/DL (<0.4); BILIRUBIN,TOTAL 0.5 MG/DL (0.3-1.2); BLOOD UREA NITROGEN 19 MG/DL (9-23); CARBON DIOXIDE LEVEL 38 MMOL/L (20-31); CHLORIDE LEVEL 99 MMOL/L (98-107); CK-MB VALUE MASS 3.4 NG/ML (<3.6); CREATININE FOR GFR 0.95 MG/DL (0.70-1.30); GLOMERULAR FILTRATION RATE > 60.0 (>49); GLUCOSE, FASTING 111 MG/DL (74-106); POTASSIUM SERUM 4.5 MMOL/L (3.5-5.1); SODIUM LEVEL 143 MMOL/L (136-145); TOTAL PROTEIN 6.9 G/DL (5.7-8.2)
[2022-06-19 09:16] LABS: THYROXINE (T4) 8.4 UG/DL (4.5-10.9)
[2022-06-19 09:17] LABS: THYROID STIMULATING HORMONE 1.386 uIU/ML (0.55-4.78)
[2022-06-19 09:24] LABS: INR 1.1; PROTHROMBIN TIME 14.4 SECONDS (12.5-14.5)
[2022-06-19 09:30] LABS: CPK CREATINE PHOSPHOKINASE 99 U/L (46-171); MB/CK RELATIVE INDEX 3.43 (< OR =4)
[2022-06-19] MEDS ORDERED: TORS20TA2 PO (09:57)
[2022-06-19] MEDS ORDERED: SERT-141 PO (09:57)
[2022-06-19] MEDS ORDERED: FENO145T7 PO (09:57)
[2022-06-19] MEDS ORDERED: VENTAER INH (09:57)
[2022-06-19] MEDS ORDERED: HOME MED LIST COMPLETE! XX SCH (10:15)
[2022-06-19] MEDS ORDERED: ISOVUE-370 76% 100ML VIAL As Ordered ONE (10:35)
[2022-06-19] MEDS: DOXYCYCLINE HYCLATE 100MG TABLET PO SCH ×2 (12:57→21:39)
[2022-06-19] MEDS ORDERED: FUROSEMIDE 100MG/10ML VIAL IV ONE (13:00)
[2022-06-19] MEDS ORDERED: LORazepam 2 MG TAB PO PRN (13:55)
[2022-06-19] MEDS: LEVALBUTEROL 1.25MG 0.5ML CONCENTRATE NEB INH PRN ×3 (15:32→23:29)
[2022-06-19 15:50] VITALS: BP 143/98
[2022-06-19 16:00] VITALS: BP 143/98
[2022-06-19] MEDS: FOLIC ACID 1MG TAB PO SCH (18:05)
[2022-06-19] MEDS: THIAMINE 100 MG TAB PO SCH (18:05)
[2022-06-19] MEDS: methylPREDNISolone 125MG 2ML VIAL IV SCH ×2 (18:06→23:17)
[2022-06-19] MEDS: cefTRIAXone SOD 1 GM in D5W MINI-BAG PLUS 50 ML IV SCH (18:06)
[2022-06-19] MEDS: LACTOBACILLUS ACIDOPHILUS CAP (BACID) PO SCH (18:06)
[2022-06-19] MEDS: MULTIVITAMINS/MINERALS THERAP 1 TAB PO SCH (18:06)
[2022-06-19 20:00] VITALS: BP 106/63
[2022-06-19] MEDS: FUROSEMIDE 40MG/4ML VIAL IV SCH (21:39)
[2022-06-19] MEDS: APIXABAN 5 MG TAB (ELIQUIS) PO SCH (21:39)
[2022-06-19 21:40] VITALS: BP 130/88
[2022-06-19 22:38] LABS: BLOOD UREA NITROGEN 21 MG/DL (9-23); CALCIUM LEVEL 9.1 MG/DL (8.3-10.6); CARBON DIOXIDE LEVEL > 40.0 MMOL/L (20-31); CHLORIDE LEVEL 98 MMOL/L (98-107); GLOMERULAR FILTRATION RATE > 60.0 (>49); GLUCOSE, FASTING 158 MG/DL (74-106); MAGNESIUM LEVEL 1.7 MG/DL (1.8-2.4); POTASSIUM SERUM 4.8 MMOL/L (3.5-5.1); SODIUM LEVEL 140 MMOL/L (136-145)
[2022-06-20 02:42] VITALS: BP 138/88
[2022-06-20] MEDS: FUROSEMIDE 40MG/4ML VIAL IV SCH (02:42)
[2022-06-20 05:19] VITALS: BP 121/86
[2022-06-20] MEDS: methylPREDNISolone 125MG 2ML VIAL IV SCH ×4 (05:19→23:05)
[2022-06-20 06:02] LABS: BASO % 0.1 % (0.0-1.0); HEMATOCRIT 44.8 % (42.0-52.0); HEMOGLOBIN 15.4 g/dl (13.5-17.5); LYMPH # 0.9 10^3/uL (1.5-5.0); LYMPH % 11.2 % (24.0-44.0); MEAN CORPUSCULAR HEMOGLOBIN 32.1 pg (27.0-33.0); MEAN CORPUSCULAR HGB CONC 34.4 g/dl (32.0-36.5); MEAN CORPUSCULAR VOLUME 93.3 fl (80.0-96.0); MONO # 0.1 10^3/uL (0.0-0.8); MONO % 0.8 % (2.0-8.0); NEUTROPHILS # 7.2 10^3/uL (1.5-8.5); NEUTROPHILS % 86.8 % (36.0-66.0); PLATELET COUNT, AUTOMATED 181 10^3/uL (150-450); WHITE BLOOD COUNT 8.3 10^3/uL (4.0-10.0)
[2022-06-20 06:27] LABS: BLOOD UREA NITROGEN 20 MG/DL (9-23); CALCIUM LEVEL 9.2 MG/DL (8.3-10.6); CARBON DIOXIDE LEVEL 38 MMOL/L (20-31); CHLORIDE LEVEL 95 MMOL/L (98-107); CREATININE FOR GFR 0.99 MG/DL (0.70-1.30); GLOMERULAR FILTRATION RATE > 60.0 (>49); GLUCOSE, FASTING 194 MG/DL (74-106); MAGNESIUM LEVEL 1.7 MG/DL (1.8-2.4); POTASSIUM SERUM 4.1 MMOL/L (3.5-5.1); SODIUM LEVEL 138 MMOL/L (136-145)
[2022-06-20] MEDS: TIOTROPIUM INHALER/CAPSULE (SPIRIVA) INH SCH (08:44)
[2022-06-20] MEDS: LEVALBUTEROL 1.25MG 0.5ML CONCENTRATE NEB INH PRN ×4 (08:48→21:44)
[2022-06-20] MEDS: LACTOBACILLUS ACIDOPHILUS CAP (BACID) PO SCH ×3 (08:55→17:45)
[2022-06-20] MEDS: SERTRALINE HCL 50 MG TAB PO SCH (08:55)
[2022-06-20] MEDS: THIAMINE 100 MG TAB PO SCH (08:55)
[2022-06-20] MEDS: FENOFIBRATE 145MG TABLET (TRICOR) PO SCH (08:55)
[2022-06-20] MEDS: FOLIC ACID 1MG TAB PO SCH (08:56)
[2022-06-20] MEDS: TORSEMIDE 20 MG TAB PO SCH (08:56)
[2022-06-20] MEDS: DOXYCYCLINE HYCLATE 100MG TABLET PO SCH ×2 (08:56→21:03)
[2022-06-20] MEDS: MULTIVITAMINS/MINERALS THERAP 1 TAB PO SCH (08:56)
[2022-06-20] MEDS: APIXABAN 5 MG TAB (ELIQUIS) PO SCH ×2 (08:56→21:03)
[2022-06-20] MEDS: METOPROLOL SUCC (TopROL XL) 100MG *XL* TAB PO SCH (08:58)
[2022-06-20] MEDS: DIGOXIN 0.125 MG TAB PO SCH (08:58)
[2022-06-20] MEDS ORDERED: FLUBLOK(EGG FREE)(QUAD)INFLUENZA VACC 0.5ML SYRINGE 18YRS & OLDER IM.IMMUN ONE (09:00)
[2022-06-20] MEDS ORDERED: ENTER DRUG NAME HERE (PATIENT'S OWN MED) INH SCH (09:00)
[2022-06-20 14:00] VITALS: BP 117/81
[2022-06-20] MEDS: EPCLUSA PO SCH (14:38)
[2022-06-20] MEDS: cefTRIAXone SOD 1 GM in D5W MINI-BAG PLUS 50 ML IV SCH (15:36)
[2022-06-20 21:00] VITALS: BP 136/88
[2022-06-21] MEDS: methylPREDNISolone 125MG 2ML VIAL IV SCH ×4 (05:18→23:38)
[2022-06-21 05:39] LABS: BASO % 0.1 % (0.0-1.0); EOS % 0.1 % (0.0-3.0); HEMATOCRIT 42.4 % (42.0-52.0); LYMPH # 1.1 10^3/uL (1.5-5.0); LYMPH % 7.4 % (24.0-44.0); MEAN CORPUSCULAR HGB CONC 35.4 g/dl (32.0-36.5); MEAN CORPUSCULAR VOLUME 93.2 fl (80.0-96.0); MONO # 0.5 10^3/uL (0.0-0.8); MONO % 3.3 % (2.0-8.0); NEUTROPHILS # 12.7 10^3/uL (1.5-8.5); NEUTROPHILS % 88.3 % (36.0-66.0); PLATELET COUNT, AUTOMATED 216 10^3/uL (150-450); RED BLOOD COUNT 4.55 10^6/uL (4.30-6.10); WHITE BLOOD COUNT 14.4 10^3/uL (4.0-10.0)
[2022-06-21 06:00] VITALS: BP 127/83
[2022-06-21 06:03] LABS: BLOOD UREA NITROGEN 37 MG/DL (9-23); CALCIUM LEVEL 9.1 MG/DL (8.3-10.6); CARBON DIOXIDE LEVEL 37 MMOL/L (20-31); CHLORIDE LEVEL 95 MMOL/L (98-107); CREATININE FOR GFR 1.01 MG/DL (0.70-1.30); GLOMERULAR FILTRATION RATE > 60.0 (>49); GLUCOSE, FASTING 208 MG/DL (74-106); MAGNESIUM LEVEL 1.8 MG/DL (1.8-2.4); POTASSIUM SERUM 4.2 MMOL/L (3.5-5.1); SODIUM LEVEL 138 MMOL/L (136-145)
[2022-06-21] MEDS: TIOTROPIUM INHALER/CAPSULE (SPIRIVA) INH SCH (07:44)
[2022-06-21] MEDS: LEVALBUTEROL 1.25MG 0.5ML CONCENTRATE NEB INH PRN ×5 (07:44→23:26)
[2022-06-21] MEDS: MULTIVITAMINS/MINERALS THERAP 1 TAB PO SCH (08:45)
[2022-06-21] MEDS: FOLIC ACID 1MG TAB PO SCH (08:45)
[2022-06-21] MEDS: FENOFIBRATE 145MG TABLET (TRICOR) PO SCH (08:45)
[2022-06-21] MEDS: SERTRALINE HCL 50 MG TAB PO SCH (08:45)
[2022-06-21] MEDS: THIAMINE 100 MG TAB PO SCH (08:45)
[2022-06-21] MEDS: DOXYCYCLINE HYCLATE 100MG TABLET PO SCH ×2 (08:45→21:06)
[2022-06-21] MEDS: LACTOBACILLUS ACIDOPHILUS CAP (BACID) PO SCH ×3 (08:45→18:05)
[2022-06-21] MEDS: APIXABAN 5 MG TAB (ELIQUIS) PO SCH ×2 (08:45→21:06)
[2022-06-21] MEDS: METOPROLOL SUCC (TopROL XL) 100MG *XL* TAB PO SCH (08:46)
[2022-06-21] MEDS: DIGOXIN 0.125 MG TAB PO SCH (08:46)
[2022-06-21] MEDS: TORSEMIDE 20 MG TAB PO SCH (08:46)
[2022-06-21] MEDS: EPCLUSA PO SCH (08:47)
[2022-06-21 14:00] VITALS: BP 126/81
[2022-06-21] MEDS: cefTRIAXone SOD 1 GM in D5W MINI-BAG PLUS 50 ML IV SCH (15:56)
[2022-06-21] MEDS: guaiFENesin ER 600 MG TAB PO SCH (21:06)
[2022-06-21 22:00] VITALS: BP 129/81
[2022-06-22] MEDS: methylPREDNISolone 125MG 2ML VIAL IV SCH ×3 (05:13→18:22)
[2022-06-22 05:23] VITALS: BP 126/84
[2022-06-22 05:46] LABS: BASO % 0.1 % (0.0-1.0); HEMATOCRIT 45.3 % (42.0-52.0); HEMOGLOBIN 15.2 g/dl (13.5-17.5); LYMPH # 0.9 10^3/uL (1.5-5.0); LYMPH % 6.7 % (24.0-44.0); MEAN CORPUSCULAR HEMOGLOBIN 31.9 pg (27.0-33.0); MEAN CORPUSCULAR HGB CONC 33.6 g/dl (32.0-36.5); MEAN CORPUSCULAR VOLUME 95.2 fl (80.0-96.0); MONO # 0.4 10^3/uL (0.0-0.8); MONO % 2.9 % (2.0-8.0); NEUTROPHILS # 11.4 10^3/uL (1.5-8.5); NEUTROPHILS % 89.3 % (36.0-66.0); PLATELET COUNT, AUTOMATED 202 10^3/uL (150-450); RED BLOOD COUNT 4.76 10^6/uL (4.30-6.10); WHITE BLOOD COUNT 12.7 10^3/uL (4.0-10.0)
[2022-06-22 06:15] LABS: BLOOD UREA NITROGEN 42 MG/DL (9-23); CALCIUM LEVEL 9.1 MG/DL (8.3-10.6); CARBON DIOXIDE LEVEL 35 MMOL/L (20-31); CHLORIDE LEVEL 98 MMOL/L (98-107); CREATININE FOR GFR 1.06 MG/DL (0.70-1.30); GLOMERULAR FILTRATION RATE > 60.0 (>49); GLUCOSE, FASTING 265 MG/DL (74-106); MAGNESIUM LEVEL 1.9 MG/DL (1.8-2.4); POTASSIUM SERUM 4.3 MMOL/L (3.5-5.1); SODIUM LEVEL 139 MMOL/L (136-145)
[2022-06-22] MEDS: LEVALBUTEROL 1.25MG 0.5ML CONCENTRATE NEB INH PRN ×5 (08:19→23:43)
[2022-06-22] MEDS: TIOTROPIUM INHALER/CAPSULE (SPIRIVA) INH SCH (08:19)
[2022-06-22] MEDS: EPCLUSA PO SCH (08:50)
[2022-06-22] MEDS: APIXABAN 5 MG TAB (ELIQUIS) PO SCH ×2 (08:50→19:59)
[2022-06-22] MEDS: guaiFENesin ER 600 MG TAB PO SCH ×2 (08:50→19:58)
[2022-06-22] MEDS: DIGOXIN 0.125 MG TAB PO SCH (08:51)
[2022-06-22] MEDS: SERTRALINE HCL 50 MG TAB PO SCH (08:51)
[2022-06-22] MEDS: MULTIVITAMINS/MINERALS THERAP 1 TAB PO SCH (08:51)
[2022-06-22] MEDS: METOPROLOL SUCC (TopROL XL) 100MG *XL* TAB PO SCH (08:51)
[2022-06-22] MEDS: THIAMINE 100 MG TAB PO SCH (08:51)
[2022-06-22] MEDS: LACTOBACILLUS ACIDOPHILUS CAP (BACID) PO SCH ×3 (08:51→18:22)
[2022-06-22] MEDS: DOXYCYCLINE HYCLATE 100MG TABLET PO SCH ×2 (08:51→19:58)
[2022-06-22] MEDS: FOLIC ACID 1MG TAB PO SCH (08:51)
[2022-06-22] MEDS: TORSEMIDE 20 MG TAB PO SCH (08:51)
[2022-06-22] MEDS: FENOFIBRATE 145MG TABLET (TRICOR) PO SCH (08:51)
[2022-06-22 14:00] VITALS: BP 123/78
[2022-06-22] MEDS: cefTRIAXone SOD 1 GM in D5W MINI-BAG PLUS 50 ML IV SCH (15:50)
[2022-06-23] MEDS: methylPREDNISolone 125MG 2ML VIAL IV SCH ×2 (00:45→05:43)
[2022-06-23 05:46] VITALS: BP 136/96
[2022-06-23 06:09] LABS: BASO % 0.2 % (0.0-1.0); HEMATOCRIT 44.5 % (42.0-52.0); HEMOGLOBIN 14.9 g/dl (13.5-17.5); LYMPH # 0.8 10^3/uL (1.5-5.0); LYMPH % 6.7 % (24.0-44.0); MEAN CORPUSCULAR HEMOGLOBIN 31.5 pg (27.0-33.0); MEAN CORPUSCULAR HGB CONC 33.5 g/dl (32.0-36.5); MEAN CORPUSCULAR VOLUME 94.1 fl (80.0-96.0); MONO # 0.4 10^3/uL (0.0-0.8); MONO % 3.2 % (2.0-8.0); NEUTROPHILS # 10.6 10^3/uL (1.5-8.5); NEUTROPHILS % 88.6 % (36.0-66.0); PLATELET COUNT, AUTOMATED 223 10^3/uL (150-450); RED BLOOD COUNT 4.73 10^6/uL (4.30-6.10)
[2022-06-23 06:34] LABS: BLOOD UREA NITROGEN 47 MG/DL (9-23); CALCIUM LEVEL 9.4 MG/DL (8.3-10.6); CARBON DIOXIDE LEVEL 34 MMOL/L (20-31); CHLORIDE LEVEL 98 MMOL/L (98-107); CREATININE FOR GFR 1.03 MG/DL (0.70-1.30); GLOMERULAR FILTRATION RATE > 60.0 (>49); GLUCOSE, FASTING 235 MG/DL (74-106); MAGNESIUM LEVEL 1.9 MG/DL (1.8-2.4); POTASSIUM SERUM 4.1 MMOL/L (3.5-5.1); SODIUM LEVEL 139 MMOL/L (136-145)
[2022-06-23] MEDS: TIOTROPIUM INHALER/CAPSULE (SPIRIVA) INH SCH (08:42)
[2022-06-23 08:43] VITALS: O2SAT 94
[2022-06-23] MEDS: APIXABAN 5 MG TAB (ELIQUIS) PO SCH ×2 (08:53→20:34)
[2022-06-23] MEDS: METOPROLOL SUCC (TopROL XL) 100MG *XL* TAB PO SCH (08:53)
[2022-06-23] MEDS: FENOFIBRATE 145MG TABLET (TRICOR) PO SCH (08:53)
[2022-06-23] MEDS: guaiFENesin ER 600 MG TAB PO SCH ×2 (08:53→20:34)
[2022-06-23] MEDS: FOLIC ACID 1MG TAB PO SCH (08:54)
[2022-06-23] MEDS: SERTRALINE HCL 50 MG TAB PO SCH (08:54)
[2022-06-23] MEDS: MULTIVITAMINS/MINERALS THERAP 1 TAB PO SCH (08:54)
[2022-06-23] MEDS: THIAMINE 100 MG TAB PO SCH (08:54)
[2022-06-23] MEDS: LACTOBACILLUS ACIDOPHILUS CAP (BACID) PO SCH ×3 (08:54→17:13)
[2022-06-23] MEDS: DIGOXIN 0.125 MG TAB PO SCH (08:54)
[2022-06-23] MEDS: DOXYCYCLINE HYCLATE 100MG TABLET PO SCH ×2 (08:54→20:34)
[2022-06-23] MEDS: EPCLUSA PO SCH (08:55)
[2022-06-23] MEDS: TORSEMIDE 20 MG TAB PO SCH (08:55)
[2022-06-23] MEDS: CEFDINIR 300 MG CAP (OMNICEF) PO SCH ×2 (11:54→20:34)
[2022-06-23 14:00] VITALS: BP 124/76
[2022-06-23] MEDS: methylPREDNISolone 40MG 1ML VIAL IV SCH (17:13)
[2022-06-23 17:23] VITALS: O2SAT 93
[2022-06-23] MEDS: LEVALBUTEROL 1.25MG 0.5ML CONCENTRATE NEB INH PRN (17:26)
[2022-06-23 21:20] VITALS: BP 141/95
[2022-06-24 05:10] VITALS: BP 140/98
[2022-06-24] MEDS: LEVALBUTEROL 1.25MG 0.5ML CONCENTRATE NEB INH PRN (05:26)
[2022-06-24] MEDS: methylPREDNISolone 40MG 1ML VIAL IV SCH (05:44)
[2022-06-24 05:53] LABS: BASO % 0.2 % (0.0-1.0); HEMATOCRIT 46.6 % (42.0-52.0); HEMOGLOBIN 16.1 g/dl (13.5-17.5); LYMPH # 1.4 10^3/uL (1.5-5.0); LYMPH % 10.2 % (24.0-44.0); MEAN CORPUSCULAR HEMOGLOBIN 32.5 pg (27.0-33.0); MEAN CORPUSCULAR HGB CONC 34.5 g/dl (32.0-36.5); MONO # 1.1 10^3/uL (0.0-0.8); MONO % 8.1 % (2.0-8.0); NEUTROPHILS # 10.6 10^3/uL (1.5-8.5); NEUTROPHILS % 79.9 % (36.0-66.0); PLATELET COUNT, AUTOMATED 219 10^3/uL (150-450); RED BLOOD COUNT 4.96 10^6/uL (4.30-6.10); WHITE BLOOD COUNT 13.3 10^3/uL (4.0-10.0)
[2022-06-24 06:14] LABS: BLOOD UREA NITROGEN 46 MG/DL (9-23); CALCIUM LEVEL 8.9 MG/DL (8.3-10.6); CARBON DIOXIDE LEVEL 36 MMOL/L (20-31); CHLORIDE LEVEL 99 MMOL/L (98-107); CREATININE FOR GFR 0.95 MG/DL (0.70-1.30); GLOMERULAR FILTRATION RATE > 60.0 (>49); GLUCOSE, FASTING 193 MG/DL (74-106); MAGNESIUM LEVEL 2.1 MG/DL (1.8-2.4); POTASSIUM SERUM 4.9 MMOL/L (3.5-5.1); SODIUM LEVEL 139 MMOL/L (136-145)
[2022-06-24] MEDS ORDERED: MUCI600T31 PO (08:13)
[2022-06-24] MEDS ORDERED: RISATAB3 PO (08:13)
[2022-06-24] MEDS ORDERED: DOXY100T PO (08:13)
[2022-06-24] MEDS ORDERED: CEFU50TA PO (08:13)
[2022-06-24] MEDS ORDERED: PRED20TA PO (08:13)
[2022-06-24] MEDS: SERTRALINE HCL 50 MG TAB PO SCH (08:32)
[2022-06-24] MEDS: FOLIC ACID 1MG TAB PO SCH (08:32)
[2022-06-24] MEDS: guaiFENesin ER 600 MG TAB PO SCH (08:32)
[2022-06-24] MEDS: TORSEMIDE 20 MG TAB PO SCH (08:32)
[2022-06-24] MEDS: EPCLUSA PO SCH (08:32)
[2022-06-24] MEDS: DIGOXIN 0.125 MG TAB PO SCH (08:32)
[2022-06-24] MEDS: DOXYCYCLINE HYCLATE 100MG TABLET PO SCH (08:32)
[2022-06-24] MEDS: CEFDINIR 300 MG CAP (OMNICEF) PO SCH (08:32)
[2022-06-24] MEDS: MULTIVITAMINS/MINERALS THERAP 1 TAB PO SCH (08:32)
[2022-06-24 08:33] VITALS: BP 140/98
[2022-06-24] MEDS: METOPROLOL SUCC (TopROL XL) 100MG *XL* TAB PO SCH (08:33)
[2022-06-24] MEDS: LACTOBACILLUS ACIDOPHILUS CAP (BACID) PO SCH (08:33)
[2022-06-24] MEDS: APIXABAN 5 MG TAB (ELIQUIS) PO SCH (08:33)
[2022-06-24] MEDS: FENOFIBRATE 145MG TABLET (TRICOR) PO SCH (08:33)
[2022-06-24] MEDS: THIAMINE 100 MG TAB PO SCH (08:33)
[2022-06-24] MEDS: TIOTROPIUM INHALER/CAPSULE (SPIRIVA) INH SCH (08:47)
[2022-06-24 08:48] VITALS: O2SAT 95
== END 2022-06-24 13:45 | disposition home or self-care (01) | DRG 291 ==
LOC: M ED 08:05 → M ED INP 12:25 → ENRESERV 14:28 → M MSPAV 15:46
PROVIDERS: ADMIT General Practice; ATTEND Internal Medicine
DX: I11.0 Hypertensive heart disease with heart failure (principal); I50.33 Acute on chronic diastolic (congestive) heart failure; J96.21 Acute and chronic respiratory failure with hypoxia; J44.1 Chronic obstructive pulmonary disease with (acute) exacerbation; I48.20 Chronic atrial fibrillation, unspecified; Z87.891 Personal history of nicotine dependence; K74.60 Unspecified cirrhosis of liver; F10.10 Alcohol abuse, uncomplicated; F32.A Depression, unspecified; G47.33 Obstructive sleep apnea (adult) (pediatric); Z91.119 Patient's noncompliance with dietary regimen due to unspecified reason; Z99.81 Dependence on supplemental oxygen; B19.20 Unspecified viral hepatitis C without hepatic coma; E66.01 Morbid (severe) obesity due to excess calories; Z68.37 Body mass index [BMI] 37.0-37.9, adult; Z88.8 Allergy status to other drugs, medicaments and biological substances; Z79.899 Other long term (current) drug therapy

== ENCOUNTER → 2022-09-22 | Outpatient (CLI) | payer MEDICARE, OTHER ==
[~2022-09-22] MED LIST changes: +ADV500INH INH; +CEFU50TA PO; +DOXY100T PO; +EPCL1TAB PO; +MUCI600T31 PO; +RISATAB3 PO; +SERT-141 PO; +VENTAER INH
[2022-09-22 16:09] LABS: BASO # 0.1 10^3/uL (0.0-0.2); BASO % 0.6 % (0.0-1.0); EOS # 0.3 10^3/uL (0.0-0.5); EOS % 2.1 % (0.0-3.0); HEMATOCRIT 48.9 % (42.0-52.0); HEMOGLOBIN 16.5 g/dl (13.5-17.5); LYMPH # 2.2 10^3/uL (1.5-5.0); LYMPH % 17.3 % (24.0-44.0); MEAN CORPUSCULAR HEMOGLOBIN 31.5 pg (27.0-33.0); MEAN CORPUSCULAR HGB CONC 33.7 g/dl (32.0-36.5); MEAN CORPUSCULAR VOLUME 93.3 fl (80.0-96.0); MONO % 8.2 % (2.0-8.0); NEUTROPHILS # 8.8 10^3/uL (1.5-8.5); NEUTROPHILS % 71.2 % (36.0-66.0); PLATELET COUNT, AUTOMATED 218 10^3/uL (150-450); RED BLOOD COUNT 5.24 10^6/uL (4.30-6.10); WHITE BLOOD COUNT 12.4 10^3/uL (4.0-10.0)
[2022-09-22 19:06] LABS: ALBUMIN 3.7 G/DL (3.2-5.2); ALKALINE PHOSPHATASE 49 U/L (46-116); ALT/SGPT 13 U/L (7.0-40); AST/SGOT 21 U/L (<34); BILIRUBIN,TOTAL 0.7 MG/DL (0.3-1.2); BLOOD UREA NITROGEN 24 MG/DL (9-23); CALCIUM LEVEL 9.7 MG/DL (8.3-10.6); CARBON DIOXIDE LEVEL > 40.0 MMOL/L (20-31); CHLORIDE LEVEL 95 MMOL/L (98-107); GLOMERULAR FILTRATION RATE > 60.0 (>49); GLUCOSE, FASTING 139 MG/DL (74-106); SODIUM LEVEL 138 MMOL/L (136-145); TOTAL PROTEIN 7.4 G/DL (5.7-8.2)
[2022-09-24 18:09] LABS: HEPATITIS C QUANTITATION HCV Not Detected IU/mL (.)
== END ==
LOC: M PLALAB 14:19
PROVIDERS: ATTEND Internal Medicine Infectious Disease
DX: B18.2 Chronic viral hepatitis C (principal)

== ENCOUNTER 2022-10-24 08:01 | Inpatient (IN) | payer OTHER ==
[~2022-10-24] VITALS: Ht 185.4 cm; Wt 131.0 kg
[2022-10-24] MEDS ORDERED: methylPREDNISolone 125MG 2ML VIAL IV ONE (09:00)
[2022-10-24 09:47] LABS: BASO % 0.4 % (0.0-1.0); EOS # 0.2 10^3/uL (0.0-0.5); EOS % 1.5 % (0.0-3.0); HEMATOCRIT 49.3 % (42.0-52.0); HEMOGLOBIN 16.3 g/dl (13.5-17.5); LYMPH # 1.6 10^3/uL (1.5-5.0); LYMPH % 14.5 % (24.0-44.0); MEAN CORPUSCULAR HEMOGLOBIN 31.4 pg (27.0-33.0); MEAN CORPUSCULAR HGB CONC 33.1 g/dl (32.0-36.5); MONO # 0.9 10^3/uL (0.0-0.8); MONO % 7.7 % (2.0-8.0); NEUTROPHILS # 8.4 10^3/uL (1.5-8.5); NEUTROPHILS % 75.5 % (36.0-66.0); PLATELET COUNT, AUTOMATED 168 10^3/uL (150-450); RED BLOOD COUNT 5.19 10^6/uL (4.30-6.10); VENOUS BASE EXCESS 8.1 (-2.0-2.0); VENOUS HCO3 36.8 MMOL/L (23.0-27.0); VENOUS O2 SATURATION 84.2 % (60.0-80.0); VENOUS PARTIAL PRESSURE CO2 66.7 mmHg (38.0-50.0); VENOUS PARTIAL PRESSURE O2 47.4 mmHg (30.0-50.0); VENOUS STANDARD HCO3 31.5 MMOL/L; VENOUS TOTAL CO2 38.9 MMOL/L (24.0-28.0); WHITE BLOOD COUNT 11.2 10^3/uL (4.0-10.0)
[2022-10-24] MEDS: IPRATROPIUM 0.5MG/ALBUTEROL 2.5MG INH SOL UD 3ML (DUONEB) NEB PRN ×2 (10:04→10:10)
[2022-10-24 10:11] LABS: ALBUMIN 3.7 G/DL (3.2-5.2); ALKALINE PHOSPHATASE 47 U/L (46-116); ALT/SGPT 16 U/L (7.0-40); AST/SGOT 23 U/L (<34); BILIRUBIN,DIRECT 0.2 MG/DL (<0.4); BILIRUBIN,TOTAL 0.5 MG/DL (0.3-1.2); BLOOD UREA NITROGEN 17 MG/DL (9-23); CALCIUM LEVEL 8.8 MG/DL (8.3-10.6); CARBON DIOXIDE LEVEL 38 MMOL/L (20-31); CHLORIDE LEVEL 100 MMOL/L (98-107); CK-MB VALUE MASS 3.4 NG/ML (<3.6); CREATININE FOR GFR 0.97 MG/DL (0.70-1.30); GLOMERULAR FILTRATION RATE > 60.0 (>49); GLUCOSE, FASTING 139 MG/DL (74-106); POTASSIUM SERUM 4.7 MMOL/L (3.5-5.1); SODIUM LEVEL 142 MMOL/L (136-145); TOTAL PROTEIN 7.1 G/DL (5.7-8.2)
[2022-10-24 10:21] LABS: CPK CREATINE PHOSPHOKINASE 79 U/L (46-171)
[2022-10-24] MEDS: IPRATROPIUM 0.5MG/ALBUTEROL 2.5MG INH SOL UD 3ML (DUONEB) NEB SCH ×4 (12:00→23:08)
[2022-10-24] MEDS ORDERED: MED REC IN PROGRESS XX SCH (12:45)
[2022-10-24 12:51] LABS: CK-MB VALUE MASS 3.7 NG/ML (<3.6)
[2022-10-24 12:53] LABS: MB/CK RELATIVE INDEX 5.87 (< OR =4)
[2022-10-24 13:31] VITALS: BP 141/85; TEMP 97.5; O2SAT 92
[2022-10-24] MEDS ORDERED: MED REC CURRENTLY UNOBTAINABLE XX SCH (14:00)
[2022-10-24] MEDS ORDERED: ZOLO100T PO (14:53)
[2022-10-24] MEDS ORDERED: SPIR12.9 INH (14:53)
[2022-10-24] MEDS ORDERED: HOME MED LIST COMPLETE! XX SCH (15:15)
[2022-10-24] MEDS: cefTRIAXone SOD 1 GM in D5W MINI-BAG PLUS 50 ML IV SCH (15:42)
[2022-10-24] MEDS: methylPREDNISolone 125MG 2ML VIAL IV SCH ×2 (15:42→20:50)
[2022-10-24] MEDS ORDERED: METOPROLOL TART 25 MG TABLET PO ONE (15:45)
[2022-10-24] MEDS ORDERED: DIGOXIN INJ 0.5 MG/2 ML AMP IV ONE (15:45)
[2022-10-24] MEDS ORDERED: NS 500 ML IV ONE (17:15)
[2022-10-24] MEDS ORDERED: MIDODRINE 5 MG TAB PO ONE (17:15)
[2022-10-24 17:17] VITALS: BP 103/68
[2022-10-24] MEDS ORDERED: AMIODARONE HCL 150 MG in IV 1 EA IV STA (17:57)
[2022-10-24] MEDS: LACTOBACILLUS ACIDOPHILUS CAP (BACID) PO SCH ×2 (17:59→20:50)
[2022-10-24] MEDS ORDERED: METOPROLOL TART 12.5 MG PER 1/2 TAB PO SCH (18:00)
[2022-10-24 18:43] VITALS: BP 154/90; TEMP 98.2; O2SAT 95
[2022-10-24 18:59] LABS: CK-MB VALUE MASS 4.2 NG/ML (<3.6); MB/CK RELATIVE INDEX 4.71 (< OR =4)
[2022-10-24] MEDS ORDERED: METOPROLOL TART 25 MG TABLET PO SCH (19:00)
[2022-10-24 20:10] VITALS: BP 156/71; TEMP 96.7; O2SAT 90
[2022-10-24] MEDS: APIXABAN 5 MG TAB (ELIQUIS) PO SCH (20:50)
[2022-10-25] VITALS (7 sets, daily range): BP systolic 119–145; BP diastolic 62–87; TEMP 96.2–97.1; O2SAT 92–98
[2022-10-25] MEDS: METOPROLOL TART 25 MG TABLET PO SCH ×5 (00:26→23:14)
[2022-10-25 02:13] LABS: CK-MB VALUE MASS 5.1 NG/ML (<3.6)
[2022-10-25 02:17] LABS: MB/CK RELATIVE INDEX 5.36 (< OR =4)
[2022-10-25] MEDS: IPRATROPIUM 0.5MG/ALBUTEROL 2.5MG INH SOL UD 3ML (DUONEB) NEB SCH ×6 (04:21→23:07)
[2022-10-25] MEDS: methylPREDNISolone 125MG 2ML VIAL IV SCH ×4 (05:07→23:14)
[2022-10-25 05:33] LABS: BASO % 0.1 % (0.0-1.0); HEMATOCRIT 46.1 % (42.0-52.0); HEMOGLOBIN 15.5 g/dl (13.5-17.5); LYMPH # 1.2 10^3/uL (1.5-5.0); LYMPH % 11.1 % (24.0-44.0); MEAN CORPUSCULAR HEMOGLOBIN 31.3 pg (27.0-33.0); MEAN CORPUSCULAR HGB CONC 33.6 g/dl (32.0-36.5); MEAN CORPUSCULAR VOLUME 93.1 fl (80.0-96.0); MONO # 0.3 10^3/uL (0.0-0.8); MONO % 2.4 % (2.0-8.0); NEUTROPHILS # 9.1 10^3/uL (1.5-8.5); NEUTROPHILS % 85.7 % (36.0-66.0); PLATELET COUNT, AUTOMATED 190 10^3/uL (150-450); RED BLOOD COUNT 4.95 10^6/uL (4.30-6.10); WHITE BLOOD COUNT 10.6 10^3/uL (4.0-10.0)
[2022-10-25 05:56] LABS: BLOOD UREA NITROGEN 21 MG/DL (9-23); CALCIUM LEVEL 8.7 MG/DL (8.3-10.6); CARBON DIOXIDE LEVEL 35 MMOL/L (20-31); CHLORIDE LEVEL 99 MMOL/L (98-107); DIGOXIN LEVEL 0.9 NG/ML (0.8-2.0); GLOMERULAR FILTRATION RATE > 60.0 (>49); GLUCOSE, FASTING 181 MG/DL (74-106); POTASSIUM SERUM 4.8 MMOL/L (3.5-5.1); SODIUM LEVEL 138 MMOL/L (136-145)
[2022-10-25] MEDS ORDERED: TORSEMIDE 20 MG TAB PO SCH (09:00)
[2022-10-25] MEDS ORDERED: METOPROLOL SUCC (TopROL XL) 100MG *XL* TAB PO SCH (09:00)
[2022-10-25] MEDS: APIXABAN 5 MG TAB (ELIQUIS) PO SCH ×2 (09:11→21:05)
[2022-10-25] MEDS: LACTOBACILLUS ACIDOPHILUS CAP (BACID) PO SCH ×4 (09:11→21:05)
[2022-10-25 10:31] LABS: CK-MB VALUE MASS 5.3 NG/ML (<3.6)
[2022-10-25 10:39] LABS: MB/CK RELATIVE INDEX 7.16 (< OR =4)
[2022-10-25] MEDS: cefTRIAXone SOD 1 GM in D5W MINI-BAG PLUS 50 ML IV SCH (15:08)
[2022-10-25] MEDS ORDERED: MELATONIN (PATIENT'S OWN MED) PO SCH (21:00)
[2022-10-26] MEDS: IPRATROPIUM 0.5MG/ALBUTEROL 2.5MG INH SOL UD 3ML (DUONEB) NEB SCH ×6 (03:26→23:05)
[2022-10-26] MEDS ORDERED: PILL CUTTER 1 EACH XX ONE (04:53)
[2022-10-26] MEDS: methylPREDNISolone 125MG 2ML VIAL IV SCH ×4 (04:58→21:02)
[2022-10-26 05:00] VITALS: BP 136/86; TEMP 98.3; O2SAT 94
[2022-10-26] MEDS: METOPROLOL TART 25 MG TABLET PO SCH ×2 (05:05→11:52)
[2022-10-26 06:24] LABS: BASO % 0.1 % (0.0-1.0); EOS % 0.1 % (0.0-3.0); HEMATOCRIT 46.4 % (42.0-52.0); HEMOGLOBIN 15.4 g/dl (13.5-17.5); LYMPH % 6.5 % (24.0-44.0); MEAN CORPUSCULAR HEMOGLOBIN 31.2 pg (27.0-33.0); MEAN CORPUSCULAR HGB CONC 33.2 g/dl (32.0-36.5); MEAN CORPUSCULAR VOLUME 93.9 fl (80.0-96.0); MONO # 0.4 10^3/uL (0.0-0.8); MONO % 2.5 % (2.0-8.0); NEUTROPHILS # 13.5 10^3/uL (1.5-8.5); NEUTROPHILS % 90.1 % (36.0-66.0); PLATELET COUNT, AUTOMATED 175 10^3/uL (150-450); RED BLOOD COUNT 4.94 10^6/uL (4.30-6.10)
[2022-10-26 06:53] LABS: BLOOD UREA NITROGEN 22 MG/DL (9-23); CALCIUM LEVEL 8.7 MG/DL (8.3-10.6); CARBON DIOXIDE LEVEL 33 MMOL/L (20-31); CHLORIDE LEVEL 101 MMOL/L (98-107); CREATININE FOR GFR 0.73 MG/DL (0.70-1.30); DIGOXIN LEVEL 0.5 NG/ML (0.8-2.0); GLOMERULAR FILTRATION RATE > 60.0 (>49); GLUCOSE, FASTING 197 MG/DL (74-106); POTASSIUM SERUM 4.5 MMOL/L (3.5-5.1); SODIUM LEVEL 140 MMOL/L (136-145)
[2022-10-26] MEDS: LACTOBACILLUS ACIDOPHILUS CAP (BACID) PO SCH ×4 (07:50→21:02)
[2022-10-26] MEDS: APIXABAN 5 MG TAB (ELIQUIS) PO SCH ×2 (07:50→21:02)
[2022-10-26 07:56] VITALS: BP 109/73; TEMP 96.4; O2SAT 92
[2022-10-26] MEDS ORDERED: TORSEMIDE 20 MG TAB PO SCH (09:00)
[2022-10-26 16:06] VITALS: BP 131/69; TEMP 97; O2SAT 95
[2022-10-26] MEDS: TORSEMIDE 20 MG TAB PO SCH (17:24)
[2022-10-26] MEDS: cefTRIAXone SOD 1 GM in D5W MINI-BAG PLUS 50 ML IV SCH (17:25)
[2022-10-26 20:00] VITALS: BP 116/69; TEMP 96.9; O2SAT 94
[2022-10-26] MEDS: METOPROLOL SUCC *XL* 25MG TAB (TopROL *XL*) PO SCH (21:00)
[2022-10-27] MEDS: IPRATROPIUM 0.5MG/ALBUTEROL 2.5MG INH SOL UD 3ML (DUONEB) NEB SCH ×6 (03:52→23:31)
[2022-10-27 04:00] VITALS: BP 128/77; TEMP 96.7; O2SAT 97
[2022-10-27] MEDS: methylPREDNISolone 125MG 2ML VIAL IV SCH ×2 (04:32→09:31)
[2022-10-27 06:01] LABS: BASO % 0.1 % (0.0-1.0); EOS % 0.2 % (0.0-3.0); HEMATOCRIT 44.8 % (42.0-52.0); HEMOGLOBIN 15.2 g/dl (13.5-17.5); LYMPH # 0.8 10^3/uL (1.5-5.0); MEAN CORPUSCULAR HEMOGLOBIN 31.9 pg (27.0-33.0); MEAN CORPUSCULAR HGB CONC 33.9 g/dl (32.0-36.5); MEAN CORPUSCULAR VOLUME 93.9 fl (80.0-96.0); MONO # 0.3 10^3/uL (0.0-0.8); MONO % 2.1 % (2.0-8.0); NEUTROPHILS # 11.8 10^3/uL (1.5-8.5); NEUTROPHILS % 90.7 % (36.0-66.0); PLATELET COUNT, AUTOMATED 182 10^3/uL (150-450); RED BLOOD COUNT 4.77 10^6/uL (4.30-6.10); WHITE BLOOD COUNT 13.1 10^3/uL (4.0-10.0)
[2022-10-27 06:12] LABS: BLOOD UREA NITROGEN 29 MG/DL (9-23); CALCIUM LEVEL 8.8 MG/DL (8.3-10.6); CARBON DIOXIDE LEVEL 32 MMOL/L (20-31); CHLORIDE LEVEL 97 MMOL/L (98-107); CREATININE FOR GFR 0.93 MG/DL (0.70-1.30); DIGOXIN LEVEL 0.5 NG/ML (0.8-2.0); GLOMERULAR FILTRATION RATE > 60.0 (>49); GLUCOSE, FASTING 242 MG/DL (74-106); POTASSIUM SERUM 4.6 MMOL/L (3.5-5.1); SODIUM LEVEL 138 MMOL/L (136-145)
[2022-10-27 07:30] VITALS: BP 135/67; TEMP 96.6; O2SAT 96
[2022-10-27] MEDS: SPIRONOLACTONE 25 MG TAB PO SCH (09:00)
[2022-10-27] MEDS: FENOFIBRATE 145MG TABLET (TRICOR) PO SCH (09:30)
[2022-10-27] MEDS: APIXABAN 5 MG TAB (ELIQUIS) PO SCH ×2 (09:30→20:48)
[2022-10-27] MEDS: SERTRALINE 100 MG TAB PO SCH (09:30)
[2022-10-27] MEDS: LACTOBACILLUS ACIDOPHILUS CAP (BACID) PO SCH ×4 (09:30→20:48)
[2022-10-27] MEDS: TORSEMIDE 20 MG TAB PO SCH (09:31)
[2022-10-27] MEDS: METOPROLOL SUCC (TopROL XL) 50MG **XL** TAB PO SCH (09:33)
[2022-10-27] MEDS: cefTRIAXone SOD 1 GM in D5W MINI-BAG PLUS 50 ML IV SCH (13:55)
[2022-10-27 15:28] VITALS: BP 131/64; TEMP 97.1; O2SAT 94
[2022-10-27 20:00] VITALS: BP 136/88; TEMP 96.8; O2SAT 96
[2022-10-27] MEDS: RAMELTEON 8 MG TAB (ROZEREM) PO SCH (20:48)
[2022-10-27] MEDS: METOPROLOL SUCC *XL* 25MG TAB (TopROL *XL*) PO SCH (20:54)
[2022-10-27] MEDS ORDERED: methylPREDNISolone 40MG 1ML VIAL IV SCH (21:00)
[2022-10-28 04:00] VITALS: BP 140/90; TEMP 96.1; O2SAT 94
[2022-10-28] MEDS: IPRATROPIUM 0.5MG/ALBUTEROL 2.5MG INH SOL UD 3ML (DUONEB) NEB SCH ×2 (04:42→07:49)
[2022-10-28 05:39] LABS: BASO % 0.2 % (0.0-1.0); HEMATOCRIT 45.1 % (42.0-52.0); HEMOGLOBIN 15.1 g/dl (13.5-17.5); LYMPH # 0.8 10^3/uL (1.5-5.0); LYMPH % 6.7 % (24.0-44.0); MEAN CORPUSCULAR HEMOGLOBIN 30.9 pg (27.0-33.0); MEAN CORPUSCULAR HGB CONC 33.5 g/dl (32.0-36.5); MEAN CORPUSCULAR VOLUME 92.4 fl (80.0-96.0); MONO # 0.6 10^3/uL (0.0-0.8); MONO % 5.4 % (2.0-8.0); NEUTROPHILS # 10.2 10^3/uL (1.5-8.5); NEUTROPHILS % 86.4 % (36.0-66.0); PLATELET COUNT, AUTOMATED 182 10^3/uL (150-450); RED BLOOD COUNT 4.88 10^6/uL (4.30-6.10); WHITE BLOOD COUNT 11.8 10^3/uL (4.0-10.0)
[2022-10-28 06:07] LABS: BLOOD UREA NITROGEN 42 MG/DL (9-23); CALCIUM LEVEL 8.6 MG/DL (8.3-10.6); CARBON DIOXIDE LEVEL 34 MMOL/L (20-31); CHLORIDE LEVEL 96 MMOL/L (98-107); CREATININE FOR GFR 0.96 MG/DL (0.70-1.30); DIGOXIN LEVEL 0.4 NG/ML (0.8-2.0); GLOMERULAR FILTRATION RATE > 60.0 (>49); GLUCOSE, FASTING 248 MG/DL (74-106); POTASSIUM SERUM 4.1 MMOL/L (3.5-5.1); SODIUM LEVEL 136 MMOL/L (136-145)
[2022-10-28 08:19] VITALS: BP 103/71; TEMP 96.4; O2SAT 93
[2022-10-28] MEDS: METOPROLOL SUCC (TopROL XL) 50MG **XL** TAB PO SCH (08:59)
[2022-10-28] MEDS: SPIRONOLACTONE 25 MG TAB PO SCH (08:59)
[2022-10-28] MEDS: LACTOBACILLUS ACIDOPHILUS CAP (BACID) PO SCH ×4 (09:05→20:17)
[2022-10-28] MEDS: APIXABAN 5 MG TAB (ELIQUIS) PO SCH ×2 (09:06→20:17)
[2022-10-28] MEDS: SERTRALINE 100 MG TAB PO SCH (09:07)
[2022-10-28] MEDS: predniSONE 20 MG TAB PO SCH ×2 (09:07→20:17)
[2022-10-28] MEDS: TORSEMIDE 20 MG TAB PO SCH (09:08)
[2022-10-28] MEDS: FENOFIBRATE 145MG TABLET (TRICOR) PO SCH (09:10)
[2022-10-28] MEDS: cefTRIAXone SOD 1 GM in D5W MINI-BAG PLUS 50 ML IV SCH (14:28)
[2022-10-28] MEDS: IPRATROPIUM 0.5MG/ALBUTEROL 2.5MG INH SOL UD 3ML (DUONEB) NEB PRN ×2 (15:01→20:21)
[2022-10-28 15:52] VITALS: BP 128/98; TEMP 97.1; O2SAT 94
[2022-10-28 17:20] VITALS: BP 140/60; TEMP 97.5; O2SAT 93
[2022-10-28 20:00] VITALS: BP 133/71; TEMP 97.7; O2SAT 94
[2022-10-28] MEDS: METOPROLOL SUCC *XL* 25MG TAB (TopROL *XL*) PO SCH (20:12)
[2022-10-28] MEDS: RAMELTEON 8 MG TAB (ROZEREM) PO SCH (20:17)
[2022-10-29] MEDS: IPRATROPIUM 0.5MG/ALBUTEROL 2.5MG INH SOL UD 3ML (DUONEB) NEB PRN (02:11)
[2022-10-29 06:00] VITALS: BP 125/75; TEMP 97.2; O2SAT 95
[2022-10-29 06:25] LABS: BASO % 0.2 % (0.0-1.0); HEMATOCRIT 45.6 % (42.0-52.0); HEMOGLOBIN 15.4 g/dl (13.5-17.5); LYMPH # 0.8 10^3/uL (1.5-5.0); LYMPH % 6.4 % (24.0-44.0); MEAN CORPUSCULAR HEMOGLOBIN 31.3 pg (27.0-33.0); MEAN CORPUSCULAR HGB CONC 33.8 g/dl (32.0-36.5); MEAN CORPUSCULAR VOLUME 92.7 fl (80.0-96.0); MONO # 0.5 10^3/uL (0.0-0.8); MONO % 4.5 % (2.0-8.0); NEUTROPHILS # 10.5 10^3/uL (1.5-8.5); NEUTROPHILS % 87.6 % (36.0-66.0); PLATELET COUNT, AUTOMATED 179 10^3/uL (150-450); RED BLOOD COUNT 4.92 10^6/uL (4.30-6.10); WHITE BLOOD COUNT 11.9 10^3/uL (4.0-10.0)
[2022-10-29 06:41] LABS: BLOOD UREA NITROGEN 43 MG/DL (9-23); CALCIUM LEVEL 9.5 MG/DL (8.3-10.6); CARBON DIOXIDE LEVEL 36 MMOL/L (20-31); CHLORIDE LEVEL 94 MMOL/L (98-107); CREATININE FOR GFR 0.96 MG/DL (0.70-1.30); DIGOXIN LEVEL 0.4 NG/ML (0.8-2.0); GLOMERULAR FILTRATION RATE > 60.0 (>49); GLUCOSE, FASTING 243 MG/DL (74-106); POTASSIUM SERUM 4.3 MMOL/L (3.5-5.1); SODIUM LEVEL 136 MMOL/L (136-145)
[2022-10-29] MEDS: APIXABAN 5 MG TAB (ELIQUIS) PO SCH (08:44)
[2022-10-29] MEDS: SERTRALINE 100 MG TAB PO SCH (08:44)
[2022-10-29] MEDS: LACTOBACILLUS ACIDOPHILUS CAP (BACID) PO SCH ×2 (08:44→11:38)
[2022-10-29] MEDS: predniSONE 20 MG TAB PO SCH (08:44)
[2022-10-29] MEDS: FENOFIBRATE 145MG TABLET (TRICOR) PO SCH (08:44)
[2022-10-29] MEDS: SPIRONOLACTONE 25 MG TAB PO SCH (08:45)
[2022-10-29] MEDS: TORSEMIDE 20 MG TAB PO SCH (08:45)
[2022-10-29 08:46] VITALS: BP 127/68
[2022-10-29] MEDS: METOPROLOL SUCC (TopROL XL) 50MG **XL** TAB PO SCH (08:46)
[2022-10-29] MEDS ORDERED: ALBU8.5H INH (10:40)
[2022-10-29] MEDS ORDERED: PRED10TA2 PO (10:40)
[2022-10-29] MEDS ORDERED: METO25TA PO (10:40)
[2022-10-29] MEDS ORDERED: DOXY-444 PO (10:40)
[2022-10-29] MEDS ORDERED: PRED20TA PO (10:40)
== END 2022-10-29 12:55 | disposition home or self-care (01) | DRG 190 ==
LOC: M ED 08:01 → M ED INP 11:50 → M MSPAV 13:39 → M PCU 18:42 → M MSPAV 10-28 16:54
PROVIDERS: ADMIT General Practice; ATTEND General Practice
DX: J44.1 Chronic obstructive pulmonary disease with (acute) exacerbation (principal); G92.9 Unspecified toxic encephalopathy; I50.32 Chronic diastolic (congestive) heart failure; J96.11 Chronic respiratory failure with hypoxia; I48.20 Chronic atrial fibrillation, unspecified; K74.60 Unspecified cirrhosis of liver; Z68.37 Body mass index [BMI] 37.0-37.9, adult; G47.33 Obstructive sleep apnea (adult) (pediatric); Z99.81 Dependence on supplemental oxygen; E66.01 Morbid (severe) obesity due to excess calories; Z68.38 Body mass index [BMI] 38.0-38.9, adult; Z79.01 Long term (current) use of anticoagulants; Z91.119 Patient's noncompliance with dietary regimen due to unspecified reason

== ENCOUNTER → 2022-11-10 | Outpatient (REF) | payer OTHER ==
[~2022-11-10] MED LIST changes: +ALBU8.5H INH; +DOXY-444 PO; +METO25TA PO; +SPIR12.9 INH; +ZOLO100T PO
[2022-11-10 13:16] LABS: BASO % 0.2 % (0.0-1.0); EOS % 0.3 % (0.0-3.0); HEMATOCRIT 51.9 % (42.0-52.0); HEMOGLOBIN 17.3 g/dl (13.5-17.5); LYMPH # 2.6 10^3/uL (1.5-5.0); LYMPH % 18.3 % (24.0-44.0); MEAN CORPUSCULAR HEMOGLOBIN 31.1 pg (27.0-33.0); MEAN CORPUSCULAR HGB CONC 33.3 g/dl (32.0-36.5); MEAN CORPUSCULAR VOLUME 93.2 fl (80.0-96.0); MONO # 0.9 10^3/uL (0.0-0.8); MONO % 6.7 % (2.0-8.0); NEUTROPHILS # 10.3 10^3/uL (1.5-8.5); NEUTROPHILS % 73.9 % (36.0-66.0); PLATELET COUNT, AUTOMATED 152 10^3/uL (150-450); RED BLOOD COUNT 5.57 10^6/uL (4.30-6.10); WHITE BLOOD COUNT 13.9 10^3/uL (4.0-10.0)
[2022-11-10 13:26] LABS: TOTAL 25(OH) VITAMIN D 16.3 NG/ML (20.0-100.0)
[2022-11-10 13:30] LABS: ALBUMIN 3.5 G/DL (3.2-5.2); ALKALINE PHOSPHATASE 42 U/L (46-116); ALT/SGPT < 9 U/L (7.0-40); AST/SGOT 16 U/L (<34); BILIRUBIN,TOTAL 0.8 MG/DL (0.3-1.2); BLOOD UREA NITROGEN 25 MG/DL (9-23); CALCIUM LEVEL 8.6 MG/DL (8.3-10.6); CARBON DIOXIDE LEVEL > 40.0 MMOL/L (20-31); CHLORIDE LEVEL 95 MMOL/L (98-107); CHOLESTEROL LEVEL 213 MG/DL (<200); CHOLESTEROL RISK RATIO 3.49 (<5); CREATININE FOR GFR 0.91 MG/DL (0.70-1.30); GLOMERULAR FILTRATION RATE > 60.0 (>49); GLUCOSE, FASTING 118 MG/DL (74-106); LDL CHOLESTEROL 115.4 MG/DL (<100); POTASSIUM SERUM 4.3 MMOL/L (3.5-5.1); SODIUM LEVEL 140 MMOL/L (136-145); TOTAL PROTEIN 6.4 G/DL (5.7-8.2); TRIGLYCERIDES LEVEL 183 MG/DL (<150)
== END ==
LOC: M SHH 11:18
PROVIDERS: ATTEND Registered Nurse
DX: Z00.00 Encounter for general adult medical examination without abnormal findings (principal); R73.03 Prediabetes; E78.2 Mixed hyperlipidemia; I10 Essential (primary) hypertension

== ENCOUNTER → 2022-12-01 | Outpatient (REF) | payer OTHER ==
[2022-12-01 14:40] LABS: BASO # 0.1 10^3/uL (0.0-0.2); BASO % 0.7 % (0.0-1.0); EOS # 0.1 10^3/uL (0.0-0.5); EOS % 1.1 % (0.0-3.0); HEMATOCRIT 47.4 % (42.0-52.0); HEMOGLOBIN 16.3 g/dl (13.5-17.5); LYMPH % 19.9 % (24.0-44.0); MEAN CORPUSCULAR HGB CONC 34.4 g/dl (32.0-36.5); MEAN CORPUSCULAR VOLUME 90.3 fl (80.0-96.0); MONO # 1.4 10^3/uL (0.0-0.8); MONO % 13.9 % (2.0-8.0); NEUTROPHILS # 6.4 10^3/uL (1.5-8.5); NEUTROPHILS % 63.3 % (36.0-66.0); PLATELET COUNT, AUTOMATED 195 10^3/uL (150-450); RED BLOOD COUNT 5.25 10^6/uL (4.30-6.10); WHITE BLOOD COUNT 10.1 10^3/uL (4.0-10.0)
[2022-12-01 15:07] LABS: ALBUMIN 3.6 G/DL (3.2-5.2); ALKALINE PHOSPHATASE 50 U/L (46-116); ALT/SGPT 13 U/L (7.0-40); AST/SGOT 23 U/L (<34); BILIRUBIN,TOTAL 0.5 MG/DL (0.3-1.2); BLOOD UREA NITROGEN 22 MG/DL (9-23); CALCIUM LEVEL 8.9 MG/DL (8.3-10.6); CARBON DIOXIDE LEVEL 35 MMOL/L (20-31); CHLORIDE LEVEL 94 MMOL/L (98-107); CREATININE FOR GFR 0.95 MG/DL (0.70-1.30); GLOMERULAR FILTRATION RATE > 60.0 (>49); GLUCOSE, FASTING 77 MG/DL (74-106); POTASSIUM SERUM 4.3 MMOL/L (3.5-5.1); SODIUM LEVEL 138 MMOL/L (136-145); TOTAL PROTEIN 6.4 G/DL (5.7-8.2)
== END ==
LOC: M SHH 14:26
PROVIDERS: ATTEND Registered Nurse
DX: I10 Essential (primary) hypertension (principal)

== ENCOUNTER 2022-12-28 08:09 | Inpatient (IN) | payer OTHER ==
[~2022-12-28] VITALS: Ht 182.9 cm; Wt 126.0 kg
[2022-12-28 08:53] LABS: VENOUS PH 7.311 UNITS (7.330-7.430)
[2022-12-28 08:54] LABS: VENOUS BASE EXCESS 8.2 (-2.0-2.0); VENOUS HCO3 38.6 MMOL/L (23.0-27.0); VENOUS O2 SATURATION 48.6 % (60.0-80.0); VENOUS PARTIAL PRESSURE CO2 78.3 mmHg (38.0-50.0); VENOUS STANDARD HCO3 30.4 MMOL/L
[2022-12-28] MEDS ORDERED: IPRATROPIUM 0.5MG/ALBUTEROL 2.5MG INH SOL UD 3ML (DUONEB) NEB ONE (08:55)
[2022-12-28] MEDS ORDERED: predniSONE 20 MG TAB PO SCH (09:00)
[2022-12-28 09:06] LABS: BASO # 0.1 10^3/uL (0.0-0.2); BASO % 0.4 % (0.0-1.0); EOS # 0.2 10^3/uL (0.0-0.5); EOS % 1.7 % (0.0-3.0); HEMATOCRIT 48.9 % (42.0-52.0); HEMOGLOBIN 16.6 g/dl (13.5-17.5); LYMPH # 1.9 10^3/uL (1.5-5.0); LYMPH % 16.7 % (24.0-44.0); MEAN CORPUSCULAR HEMOGLOBIN 31.1 pg (27.0-33.0); MEAN CORPUSCULAR HGB CONC 33.9 g/dl (32.0-36.5); MEAN CORPUSCULAR VOLUME 91.7 fl (80.0-96.0); MONO # 0.9 10^3/uL (0.0-0.8); MONO % 7.7 % (2.0-8.0); NEUTROPHILS # 8.2 10^3/uL (1.5-8.5); NEUTROPHILS % 72.7 % (36.0-66.0); PLATELET COUNT, AUTOMATED 183 10^3/uL (150-450); RED BLOOD COUNT 5.33 10^6/uL (4.30-6.10); WHITE BLOOD COUNT 11.2 10^3/uL (4.0-10.0)
[2022-12-28 09:16] LABS: INR 1.16; PROTHROMBIN TIME 14.5 SECONDS (12.5-14.5)
[2022-12-28 09:24] LABS: CK-MB VALUE MASS 5.7 NG/ML (<3.6); CPK CREATINE PHOSPHOKINASE 69 U/L (46-171); MB/CK RELATIVE INDEX 8.26 (< OR =4)
[2022-12-28 09:28] LABS: THYROID STIMULATING HORMONE 1.532 uIU/ML (0.55-4.78)
[2022-12-28 09:32] LABS: PROCALCITONIN 0.14 ng/ml
[2022-12-28 09:40] LABS: ALBUMIN 3.7 G/DL (3.2-5.2); ALKALINE PHOSPHATASE 49 U/L (46-116); ALT/SGPT 11 U/L (7.0-40); AST/SGOT 17 U/L (<34); BILIRUBIN,DIRECT 0.3 MG/DL (<0.4); BILIRUBIN,TOTAL 0.7 MG/DL (0.3-1.2); BLOOD UREA NITROGEN 17 MG/DL (9-23); CALCIUM LEVEL 9.1 MG/DL (8.3-10.6); CARBON DIOXIDE LEVEL > 40.0 MMOL/L (20-31); CHLORIDE LEVEL 95 MMOL/L (98-107); CREATININE FOR GFR 0.93 MG/DL (0.70-1.30); GLOMERULAR FILTRATION RATE > 60.0 (>49); GLUCOSE, FASTING 137 MG/DL (74-106); POTASSIUM SERUM 4.5 MMOL/L (3.5-5.1); SODIUM LEVEL 141 MMOL/L (136-145); TOTAL PROTEIN 6.9 G/DL (5.7-8.2)
[2022-12-28 10:25] LABS: CK-MB VALUE MASS 3.4 NG/ML (<3.6)
[2022-12-28 10:29] LABS: MB/CK RELATIVE INDEX 4.92 (< OR =4)
[2022-12-28 10:42] LABS: ABG BASE EXCESS 8.1 (-2.0-2.0); ABG HCO3 35.7 MMOL/L (22.0-26.0); ABG O2 SATURATION 92.2 % (95.0-99.0); ABG PARTIAL PRESSURE O2 61.5 mmHg (75.0-100.0); ABG STANDARD HCO3 31.7 MMOL/L. (22.0-26.0); ABG TOTAL CO2 37.5 MMOL/L (23.0-31.0)
[2022-12-28 10:44] LABS: ABG PARTIAL PRESSURE CO2 60.3 mmHg (35.0-45.0)
[2022-12-28] MEDS ORDERED: EPCL1TAB (11:42)
[2022-12-28] MEDS ORDERED: LOSA25TA13 PO (11:43)
[2022-12-28] MEDS ORDERED: MAG SULF 1GM/100ML (MAG RUN) 1 GM in IV 1 EA IV ONE (11:45)
[2022-12-28] MEDS ORDERED: MED REC IN PROGRESS XX SCH (12:15)
[2022-12-28] MEDS ORDERED: LORazepam 2 MG TAB PO PRN (12:15)
[2022-12-28] MEDS ORDERED: NYST-13 TOP (12:31)
[2022-12-28] MEDS: FOLIC ACID 1MG TAB PO SCH (12:35)
[2022-12-28] MEDS ORDERED: AZITHROMYCIN INJ 500 MG, VIAL MATE ADAPTER 1 EACH in NS 250 ML IV SCH (13:00)
[2022-12-28] MEDS ORDERED: HOME MED LIST COMPLETE! XX SCH (13:05)
[2022-12-28 13:22] VITALS: O2SAT 93
[2022-12-28] MEDS: IPRATROPIUM 0.5MG/ALBUTEROL 2.5MG INH SOL UD 3ML (DUONEB) NEB SCH ×2 (13:22→19:53)
[2022-12-28] MEDS: PANTOPRAZOLE 40MG TAB (PROTONIX) PO SCH ×2 (13:53→20:50)
[2022-12-28] MEDS: THIAMINE 100 MG TAB PO SCH ×2 (13:53→20:50)
[2022-12-28] MEDS: predniSONE 20 MG TAB PO SCH ×2 (13:54→20:48)
[2022-12-28] MEDS: CLOTRIMAZOLE 1% TOPICAL CREAM 30GM TOP SCH ×2 (15:11→20:50)
[2022-12-28] MEDS: IPRATROPIUM 0.02% SOLN 0.5MG 2.5ML NEB NEB PRN (15:30)
[2022-12-28 15:31] VITALS: BP 127/79; O2SAT 97
[2022-12-28] MEDS ORDERED: METOPROLOL TART 25 MG TABLET PO ONE (16:05)
[2022-12-28 20:37] VITALS: BP 134/86; TEMP 96.4; O2SAT 90
[2022-12-28] MEDS: APIXABAN 5 MG TAB (ELIQUIS) PO SCH (20:50)
[2022-12-28] MEDS ORDERED: METOPROLOL TART 25 MG TABLET PO SCH (21:00)
[2022-12-29] VITALS (7 sets, daily range): BP systolic 115–126; BP diastolic 70–88; TEMP 96.2–97.4; O2SAT 91–97
[2022-12-29] MEDS: IPRATROPIUM 0.5MG/ALBUTEROL 2.5MG INH SOL UD 3ML (DUONEB) NEB SCH ×4 (01:41→19:54)
[2022-12-29 05:44] LABS: BLOOD UREA NITROGEN 21 MG/DL (9-23); CALCIUM LEVEL 8.9 MG/DL (8.3-10.6); CARBON DIOXIDE LEVEL 35 MMOL/L (20-31); CHLORIDE LEVEL 97 MMOL/L (98-107); CREATININE FOR GFR 0.82 MG/DL (0.70-1.30); GLOMERULAR FILTRATION RATE > 60.0 (>49); GLUCOSE, FASTING 177 MG/DL (74-106); HEMATOCRIT 48.6 % (42.0-52.0); HEMOGLOBIN 16.3 g/dl (13.5-17.5); MEAN CORPUSCULAR HEMOGLOBIN 30.6 pg (27.0-33.0); MEAN CORPUSCULAR HGB CONC 33.5 g/dl (32.0-36.5); MEAN CORPUSCULAR VOLUME 91.4 fl (80.0-96.0); PLATELET COUNT, AUTOMATED 197 10^3/uL (150-450); POTASSIUM SERUM 4.5 MMOL/L (3.5-5.1); RED BLOOD COUNT 5.32 10^6/uL (4.30-6.10); SODIUM LEVEL 139 MMOL/L (136-145); WHITE BLOOD COUNT 12.2 10^3/uL (4.0-10.0)
[2022-12-29] MEDS: FOLIC ACID 1MG TAB PO SCH (08:22)
[2022-12-29] MEDS: DIGOXIN 0.125 MG TAB PO SCH (08:23)
[2022-12-29] MEDS: APIXABAN 5 MG TAB (ELIQUIS) PO SCH ×2 (08:23→21:48)
[2022-12-29] MEDS: predniSONE 20 MG TAB PO SCH ×2 (08:23→21:48)
[2022-12-29] MEDS: THIAMINE 100 MG TAB PO SCH ×2 (08:23→21:48)
[2022-12-29] MEDS: MULTIVITAMINS/MINERALS THERAP 1 TAB PO SCH (08:23)
[2022-12-29] MEDS: PANTOPRAZOLE 40MG TAB (PROTONIX) PO SCH ×2 (08:23→21:48)
[2022-12-29] MEDS: SPIRONOLACTONE 25 MG TAB PO SCH (08:23)
[2022-12-29] MEDS: SERTRALINE 100 MG TAB PO SCH (08:24)
[2022-12-29] MEDS: CLOTRIMAZOLE 1% TOPICAL CREAM 30GM TOP SCH ×2 (08:24→21:47)
[2022-12-29] MEDS: METOPROLOL TART 50 MG TAB PO SCH ×2 (08:24→21:49)
[2022-12-29] MEDS ORDERED: TORSEMIDE 20 MG TAB PO SCH (09:00)
[2022-12-29] MEDS: AZITHROMYCIN 250MG TABLET PO SCH (11:19)
[2022-12-29] MEDS ORDERED: METOPROLOL TART 50 MG TAB PO ONE (14:50)
[2022-12-29] MEDS: IPRATROPIUM 0.02% SOLN 0.5MG 2.5ML NEB NEB PRN (17:28)
[2022-12-30 00:08] VITALS: BP 121/74; TEMP 97.6; O2SAT 93
[2022-12-30] MEDS: IPRATROPIUM 0.5MG/ALBUTEROL 2.5MG INH SOL UD 3ML (DUONEB) NEB SCH ×2 (01:55→08:22)
[2022-12-30 04:24] VITALS: BP 126/97; TEMP 97.4; O2SAT 98
[2022-12-30 06:37] LABS: BASO % 0.2 % (0.0-1.0); EOS % 0.1 % (0.0-3.0); HEMATOCRIT 44.2 % (42.0-52.0); LYMPH # 1.1 10^3/uL (1.5-5.0); LYMPH % 6.5 % (24.0-44.0); MEAN CORPUSCULAR HEMOGLOBIN 30.9 pg (27.0-33.0); MEAN CORPUSCULAR HGB CONC 33.9 g/dl (32.0-36.5); MEAN CORPUSCULAR VOLUME 90.9 fl (80.0-96.0); MONO # 0.7 10^3/uL (0.0-0.8); MONO % 3.8 % (2.0-8.0); NEUTROPHILS # 15.2 10^3/uL (1.5-8.5); NEUTROPHILS % 88.4 % (36.0-66.0); PLATELET COUNT, AUTOMATED 200 10^3/uL (150-450); RED BLOOD COUNT 4.86 10^6/uL (4.30-6.10); WHITE BLOOD COUNT 17.2 10^3/uL (4.0-10.0)
[2022-12-30 07:08] LABS: BLOOD UREA NITROGEN 39 MG/DL (9-23); CARBON DIOXIDE LEVEL 36 MMOL/L (20-31); CHLORIDE LEVEL 95 MMOL/L (98-107); CREATININE FOR GFR 0.98 MG/DL (0.70-1.30); GLOMERULAR FILTRATION RATE > 60.0 (>49); GLUCOSE, FASTING 184 MG/DL (74-106); MAGNESIUM LEVEL 1.8 MG/DL (1.8-2.4); POTASSIUM SERUM 4.3 MMOL/L (3.5-5.1); SODIUM LEVEL 140 MMOL/L (136-145)
[2022-12-30 08:01] VITALS: BP 111/81; TEMP 96.3; O2SAT 95
[2022-12-30] MEDS: METOPROLOL TART 50 MG TAB PO SCH (08:06)
[2022-12-30] MEDS: AZITHROMYCIN 250MG TABLET PO SCH (08:08)
[2022-12-30] MEDS: PANTOPRAZOLE 40MG TAB (PROTONIX) PO SCH (08:08)
[2022-12-30] MEDS: SPIRONOLACTONE 25 MG TAB PO SCH (08:08)
[2022-12-30] MEDS: APIXABAN 5 MG TAB (ELIQUIS) PO SCH (08:08)
[2022-12-30] MEDS: THIAMINE 100 MG TAB PO SCH (08:09)
[2022-12-30] MEDS: DIGOXIN 0.125 MG TAB PO SCH (08:09)
[2022-12-30] MEDS: SERTRALINE 100 MG TAB PO SCH (08:09)
[2022-12-30] MEDS: predniSONE 20 MG TAB PO SCH (08:10)
[2022-12-30] MEDS ORDERED: DIGOXIN INJ 0.5 MG/2 ML AMP IV ONE (08:10)
[2022-12-30] MEDS: MULTIVITAMINS/MINERALS THERAP 1 TAB PO SCH (08:10)
[2022-12-30] MEDS: FOLIC ACID 1MG TAB PO SCH (08:10)
[2022-12-30] MEDS ORDERED: TORSEMIDE 20 MG TAB PO SCH (09:00)
[2022-12-30] MEDS: CLOTRIMAZOLE 1% TOPICAL CREAM 30GM TOP SCH (09:24)
[2022-12-30] MEDS ORDERED: METOPROLOL TART 50 MG TAB PO ONE (10:00)
[2022-12-30] MEDS ORDERED: PRED10TA2 PO (10:17)
[2022-12-30 10:36] VITALS: BP 111/81
[2022-12-30] MEDS ORDERED: ALBU8.5H INH (10:54)
[2022-12-30] MEDS ORDERED: PRED20TA PO (10:54)
[2022-12-30] MEDS ORDERED: METO25TA PO (10:54)
[2022-12-30 11:24] VITALS: BP 136/85; TEMP 97.2; O2SAT 95
== END 2022-12-30 12:44 | disposition home health service (06) | DRG 191 ==
LOC: EDBD 08:09 → M ED 08:09 → M ED INP 11:39 → ENRESERV 13:56 → M PCU 15:10
PROVIDERS: ADMIT Internal Medicine; ATTEND Internal Medicine
DX: J44.1 Chronic obstructive pulmonary disease with (acute) exacerbation (principal); J96.11 Chronic respiratory failure with hypoxia; I50.32 Chronic diastolic (congestive) heart failure; J96.12 Chronic respiratory failure with hypercapnia; G47.33 Obstructive sleep apnea (adult) (pediatric); I48.91 Unspecified atrial fibrillation; E66.01 Morbid (severe) obesity due to excess calories; J40 Bronchitis, not specified as acute or chronic; K70.30 Alcoholic cirrhosis of liver without ascites; K73.9 Chronic hepatitis, unspecified; F10.20 Alcohol dependence, uncomplicated; Z71.41 Alcohol abuse counseling and surveillance of alcoholic; I11.0 Hypertensive heart disease with heart failure; F32.A Depression, unspecified; F41.9 Anxiety disorder, unspecified; Z66 Do not resuscitate; Z99.81 Dependence on supplemental oxygen; Z79.01 Long term (current) use of anticoagulants; Z79.899 Other long term (current) drug therapy; Z88.8 Allergy status to other drugs, medicaments and biological substances; Z20.822 Contact with and (suspected) exposure to COVID-19